=== PATIENT | male | born 1950 | race Caucasian/White ===

== ENCOUNTER 2016-12-20 09:18 | Outpatient (CLI) | payer MEDICARE, OTHER ==
[2015-03-21 08:01] VITALS: BMI 34.2
--- NOTE | ~2016-12-20 | HEMODYNAMI ---
PATIENT:SAROJ GUTIERREZ MEDICAL RECORD: [id number] : 50 LOCATION:DTRENT ADMISSION DATE: 12/20/16 Generatedon:12/24/201612:04 Patient name: SAROJ GUTIERREZ Patient #: [id number] SSN: DO B: 1950 Date of study: 12/20/2016 Page: Of Hemodynamic Procedure Report Patient Data Patient Demographics Procedure consent was obtained First Name: SAROJ Gender: Male Last Name: MATT : 1950 [facility] Initial: ODILIA Age: 66 year(s) Patient #: [id number] Race: Additional ID: [id number] Contact details Address: [address] [place] [address] State: [place] City: [place] Zip code: [address] Past Medical History Allergies: No known allergies Admission Admission Data Admission Date: 12/20/2016 Admission Time: 9:18 Height (in.): 68 BSA: 2.13 (m2) Height (cm.): 172.72 BMI: 33.45 (kg/m2) Weight (lbs.): 220 Weight (kg.): 99.79 Procedure Procedure Types Cath Procedure Diagnostic Procedure LHC [facility] w/Coronaries FFR/IVUS Intra-Coronary IVUS Initial PCI Procedure Coronary Stent Initial Miscellaneous Procedures Moderate Sedation up to 15 minutes Procedure Description Procedure Date Procedure Date: 12/20/2016 Procedure Start Time: 13:15 Procedure End Time: 13:43 Procedure Staff Name Function Adrian Deutsch RT Scrub Javi Aranda RN Nurse Shine Evans MD Performing Physician Vale Connell RT Monitor Procedure Data Cath Procedure Fluoroscopy Diagnostic fluoroscopy Total fluoroscopy Time: 5 time: 5 min min Contrast Material Contrast Material Type Amount (ml) Isovue 300 103 Entry Location Entry Primary Successful Side Size Upsize Upsize Entry Closure Succes sful Closure Location (Fr) 1 (Fr) 2 (Fr) Remarks Device Remarks Femoral Right 5 Fr 6 Fr Exoseal artery Short Estimated blood loss: 10 ml Diagnostic catheters Device Type Used For End Catheter Placement Cordis 5Fr Pigtail Procedure Catheter (MP) Cordis 5Fr JL 4.0 Procedure Catheter (MP) Cordis 5Fr 3DRC Catheter Procedure (MP) Procedure Complications No complications Procedure Medications Medication Administration Route Dosage Oxygen NC 2 l/min Heparin Flush Bag added to field 2 bags (1000units/500ml NS) 0.9% NaCl I.V. 100 ml/hr Radial Cocktail added to field 1 syringe (Verapomil 2mg/Nitro 400mcg/Heparin 1500units) Fentanyl I.V. 50 mcg Versed I.V. 1 mg Fentanyl I.V. 50 mcg Versed I.V. 1 mg Fentanyl I.V. 50 mcg Versed I.V. 1 mg Fentanyl I.V. 50 mcg Versed I.V. 1 mg Fentanyl I.V. 50 mcg Heparin Bolus I.V. 4000 units Hemodynamics Rest BSA: 2.13 (m2) O2 Consumption: Estimated: 235.11 (ml/min) O2 Consumption indexed : Estimated:110.38 (ml/min/m) Heart Rate: 54 (bpm) Pressure Samples Time Site Value (mmHg) Purpose Heart Use Rate(bpm) 13:22 LV 85/12,12 Snapshot 65 13:22 LV 193/62,51 Snapshot 75 Snapshots Pre Cath Intra NCS Post Cath Vital Signs Time Heart Resp SPO2 etCO2 [id number] NIBP (mmHg) Rhythm Pain Sedation Rate (ipm) (%) (mmHg) (mmHg) Status Level (bpm) 12:57:19 54 18 98 0 0 135/68(108) NSR 0 (11) 10(A) , No pain 13:02:18 56 20 99 0 0 131/72(109) NSR 0 (11) 10(A) , No pain 13:06:34 58 18 97 0 0 128/72(104) NSR 0 (11) 10(A) , No pain 13:10:50 71 17 95 0 0 118/67(103) NSR 0 (11) 10(A) , No pain 13:15:17 74 17 95 0 0 106/43(100) NSR 0 (11) 9(A) , No pain 13:19:26 76 16 95 0 0 116/73(86) NSR 0 (11) 9(A) , No pain 13:24:17 75 17 84 0 0 144/93(138) NSR 0 (11) 9(A) , No pain 13:35:31 70 17 88 0 0 131/71(127) NSR 0 (11) 9(A) , No pain 13:39:45 73 17 92 0 0 116/75(106) NSR 0 (11) 9(A) , No pain 13:43:45 83 5 97 0 0 126/68(93) NSR 0 (11) 10(A) , No pain Medications Time Medication Route Dose Verified Delivered Reason Note s Effectiveness by by 13:01:50 Oxygen NC 2 l/min Javi Per physician Manoj KAUFFMAN 13:02:51 Heparin Flush added 2 bags Javi Javi used for Bag to Manoj Aranda pick up driver (1000units/500ml RN NS) 13:03:00 0.9% NaCl I.V. 100 Javi Javi Per physician ml/hr Manoj Aranda RN RN 13:03:07 Radial Cocktail added 1 Javi Javi used for (Verapomil to syringe Manoj Aranda RN procedure 2mg/Nitro RN 400mcg/Hepari 13:09:21 Fentanyl I.V. 50 mcg Javi Javi for sedation Manoj Aranda RN RN 13:09:27 Versed I.V. 1 mg Javi Javi for sedation Manoj Aranda RN RN 13:12:13 Fentanyl I.V. 50 mcg Javi Javi for sedation Manoj Aranda RN RN 13:12:17 Versed I.V. 1 mg Javi Javi for sedation Manoj Aranda RN RN 13:16:34 Fentanyl I.V. 50 mcg Javi Javi for sedation Manoj Aranda RN RN 13:19:51 Versed I.V. 1 mg Javi Javi for sedation Manoj Aranda RN RN 13:20:09 Fentanyl I.V. 50 mcg Javi Javi for sedation Manoj Aranda RN RN 13:27:59 Heparin Bolus I.V. 4000 Javi Javi for units Manoj Aranda RN anticoagulation RN 13:31:04 Versed I.V. 1 mg Javi Javi for sedation Manoj Aranda RN RN 13:31:15 Fentanyl I.V. 50 mcg Javi Javi for sedation Manoj Aranda RN painter ski edge Log Time Note 12:32:39 Javi Aranda RN sent for patient. Start room use. 12:39:06 Informed consent obtained and on chart 12:39:09 Diagnostic Cath Status : Elective 12:39:51 Time tracking: Regular hours 12:39:56 Plan of Care:Hemodynamics will remain stable., Cardiac rhythm will remain stable., Comfort level will be maintained., Respiratory function will remain adequate., Patient/ family verbilizes understanding of procedure., Procedure tolerated without complication., Recovers from procedure without complications.. 12:50:22 Patient received from ED to CCL 2 Alert and oriented. Tansferred to table in Supine position. 12:50:24 Warm blankets applied, and brianna hugger turned on for patient comfort. 12:50:25 Correct patient and procedure confirmed by team. 12:50:27 ECG and BP/O2 sat monitors applied to patient. 12:56:11 Vital chart was started 12:56:12 Baseline sample Acquired. 12:56:14 Full Disclosure recording started 12:56:23 H&P Date Dictated: 12/20/2016 Emergent; H&P N/A. 12:56:25 Pre-procedure instructions explained to patient. 12:56:30 Family unavailable. 12:56:32 Patient NPO since Midnight. 12:56:36 Is the patient allergic to Iodine/contrast media? No. 12:56:39 Is patient on blood thinner?Yes 12:56:42 ACC The patient was administered the following blood thiners within the last 24 hours: ACCPlavix 12:56:44 Patient diabetic? No. 12:56:49 Snore? No 12:56:50 Sleep apnea? No 12:56:54 Dentures? No ? 12:57:11 Patient pain scale 2/10 pressure. 12:57:18 IV patent on arrival in left forearm with 0.9% NaCl at KVO. 12:57:26 Right Radial & Right Groin area was prepped with chlora-prep and draped in sterile fashion 12:57:47 Sharps counted by scrub and verified by R.N. 12:57:48 Physician paged 12:57:51 Physician arrived 13:01:50 Oxygen 2 l/min NC was administered by ; Per physician; 13:02:51 Heparin Flush Bag (1000units/500ml NS) 2 bags added to field was administered by Javi Aranda RN; used for procedure; 13:03:00 0.9% NaCl 100 ml/hr I.V. was administered by Javi Aranda RN; Per physician; 13:03:07 Radial Cocktail (Verapomil 2mg/Nitro 400mcg/Heparin 1500units) 1 syringe added to field was administered by Javi Aranda RN; used for procedure; 13:05:30 --------ALL STOP TIME OUT------ 13:05:31 Final Timeout: patient, procedure, and site verified with staff and physician. All members of the team are in agreement. 13:05:34 Right Radial & Right Groin site verified by team. 13:05:39 Physical assessment completed. ASA score P 2 - A patient with mild systemic disease as per Shine Evans MD. 13:05:43 Sedation plan: IV Moderate Sedation Versed, Fentanyl 13:06:24 Use device set Radial Dx 13:06:25 Acist Syringe opened to sterile field. 13:06:26 Terumo 6Fr Slender Glidesheath opened to sterile field. 13:06:26 Bag Decanter opened to sterile field. 13:06:26 Medline Cath Pack opened to sterile field. 13:06:27 Acist Hand Control opened to sterile field. 13:06:27 St Neri 260cm J .035 wire opened to sterile field. 13:06:28 Tegaderm 4 x 4 opened to sterile field. 13:06:28 Acist Manifold opened to sterile field. 13:06:29 MBrace Wrist Support opened to sterile field. 13:09:21 Fentanyl 50 mcg I.V. was administered by Javi Aranda RN; for sedation; 13:09:27 Versed 1 mg I.V. was administered by Javi Aranda RN; for sedation; 13:12:13 Fentanyl 50 mcg I.V. was administered by Javi Aranda RN; for sedation; 13:12:17 Versed 1 mg I.V. was administered by Javi Aranda RN; for sedation; 13:12:24 Procedure started. 13:15:41 Local anesthetic to right radial artery with Lidocaine 2% by Shine Evans MD.INITIAL ACCESS ONLY 13:16:34 Fentanyl 50 mcg I.V. was administered by Javi Aranda RN; for sedation; 13:18:18 Terumo 5Fr [place] Sheath opened to sterile field. 13:19:01 Local anesthetic to right femoral artery with Lidocaine 2% by Shine vEans MD.ADDITIONAL ACCESS 13:19:51 Versed 1 mg I.V. was administered by Javi Aranda RN; for sedation; 13:20:09 Fentanyl 50 mcg I.V. was administered by Javi Aranda RN; for sedation; 13:20:17 A 5 Fr sheath was inserted into the Right Femoral artery 13:20:59 Use device set Multipack Set 13:21:04 Diagnostic Infinity 5Fr Multipack catheter opened to sterile field. 13:21:16 A Cordis 5Fr Pigtail Catheter (MP) was advanced over the wire and used for Procedure. 13:22:29 EF : 55 % 13:22:31 Catheter removed. 13:22:38 A Cordis 5Fr JL 4.0 Catheter (MP) was advanced over the wire and used for Procedure. 13:24:33 Catheter removed. 13:24:41 A Cordis 5Fr 3DRC Catheter (MP) was advanced over the wire and used for Procedure. 13:27:07 [place] IVUS Catheter opened to sterile field. 13:27:07 Terumo 6Fr [place] Sheath opened to sterile field. 13:27:08 Stageittronic Launcher 6Fr 3DRC guide catheter opened to sterile field. 13:27:08 Mir Vracha BasixCompak Inflation Kit opened to sterile field. 13:27:20 Sheath upsized to a 6 Fr Short. 13:27:36 6 Fr 3DRC guide catheter was inserted over the wire 13:27:38 Wire advanced across lesion. 13:27:59 Heparin Bolus 4000 units I.V. was administered by Javi Aranda RN; for anticoagulation; 13:28:09 Meeks Whisper J 300cm 0.014 guide wire opened to sterile field. 13:28:18 IVUS catheter advanced over wire. 13:31:04 Versed 1 mg I.V. was administered by Javi Aranda RN; for sedation; 13:31:15 Fentanyl 50 mcg I.V. was administered by Javi Aranda RN; for sedation; 13:32:50 IVUS catheter removed over wire. 13:33:12 Stent expires 02/25/17 13:35:37 Inflation Number: 1 A Biofreedom 3.5 x 24 stent (No Cost Implant) was prepped and advanced across the Mid RCA. The stent was deployed at 13 RICKIE for 0:10 (min:sec). 13:40:07 Cordis 6Fr Exoseal opened to sterile field. 13:40:12 Guide catheter removed. 13:40:12 Wire removed. 13:40:27 Sheath removed intact; hemostasis achieved with Exoseal to the Right Femoral artery. 13:40:43 Procedure ended.(Physican Out) 13:41:45 Fluoroscopy time 05.00 minutes. 13:41:57 Contrast amount:Isovue 300 103ml. 13:42:01 Sharps counted by scrub and verified by R.N. 13:42:07 Post-op/insertion site Right Femoral artery dressed using a 4 x 4 and Tegaderm. 13:42:09 Post Procedure Pulses reassessed and unchanged 13:42:14 Post-procedure physical assessment completed. ASA score P 2 - A patient with mild systemic disease as per Shine Evans MD. 13:42:19 Post procedure rhythm: unchanged. 13:42:22 Estimated blood loss: 10 ml 13:42:23 Post procedure instruction explained to patient.Patient verbalizes understanding. 13:42:55 Procedure type changed to Cath procedure, Diagnostic procedure, LHC, LHC w/Coronaries, FFR/IVUS, Intra-Coronary IVUS Initial, PCI procedure, Coronary Stent Initial, Miscellaneous Procedures, Moderate Sedation up to 15 minutes 13:42:56 Procedure and supply charges have been captured, reviewed, submitted and are correct. 13:43:21 Procedure Complication : No complications 13:43:24 See physician's report for complete and final results. 13:43:24 Vital chart was stopped 13:43:26 Report given to Pre/Post Procedure Room. 13:43:30 Patient transfered to Pre/Post Procedure Room with Stretcher. 13:43:33 Full Disclosure recording stopped 13:43:33 Procedure ended. 13:43:37 End room use (Document Last) 13:43:49 ACC-PCI Only Patient was given prescriptions, or instructed by Shine Evans MD to start/continue the following medications upon discharge: Plavix 13:46:26 Patient Weight : 220 kg 13:46:29 Patient Height : 68 cm Intervention Summary Intervention Notes Time ActionType Lesion and Equipment Action# Pressure Duration Attributes Used 13:35:37 Place stent Mid RCA Biofreedom 1 13 00:10 3.5 x 24 stent (No Cost Implant) Device Usage Item Name Manufacture Quantity Catalog Hospital Part Current Minimal Lot# / Number Charge Number Stock Stock Serial# Code Acist Acist 1 29694 028252 093604 826095 20 Syringe Medical Systems Inc Medline Cardinal 1 [id number] 658884 58132 095126 5 Cath Pack Health Bag Microtek 1 2002S 598221 91731 160578 5 Decanter Medical Inc. Terumo 6Fr Terumo 1 [id number] 331565 687061 741832 [address] N[address] St Neri 1 941228 740159 609333 345563 30 260cm J .035 wire Acist Hand Acist 1 39825 167804 169060 124177 5 Control Medical Systems Inc Acist Acist 1 84011 016163 905575 918171 5 Manifold Medical Systems Inc Tegaderm 4 3M 1 1626W 706825 523071 976309 5 x 4 MBrace Advanced 1 140-0250-00 205996 11891 914057 5 Wrist Vascular Support Dynamics Terumo 5Fr Terumo 1 SHV274 706659 685005 876725 40 [place] Sheath Diagnostic Cardinal 1 [id number] 928045 83592 115183 30 Infinity Health 5Fr Multipack catheter Cordis 5Fr Cardinal 1 102574 5 Pigtail Health Catheter (MP) Cordis 5Fr Cardinal 1 243754 5 JL 4.0 Health Catheter (MP) Cordis 5Fr Cardinal 1 405285 5 3DRC Health Catheter (MP) Terumo 6Fr Terumo 1 BPW683 772202 698281 459097 40 [place] Sheath [place] 1 [id number] 500374 347698 634000 8 [place] Eagleye IVUS Catheter Merit Merit 1 [id number] 296206 514236 307435 15 Aquafadas Medical Inflation Kit Medtronic Medtronic 1 [id number] 940853 892740 391142 1 Launcher 6Fr 3DRC guide catheter Meeks Meeks 1 [id number] 960260 756423 913342 5 Whisper J Vascular 300cm 0.014 guide wire Biofreedom Biosensors 1 [facility]3-1104 048854 139734 5 [id number] 3.5 x 24 [place] SA stent (No Cost Implant) Cordis 6Fr Cardinal 1 EX600 906968 117047 993765 10 [facility] Health Signature Audit Herald Stage Time Signature Unsigned Intra-Procedure 12/20/2016 Vale Connell 1:47:33 PM RT(R) RT(R) 12/24/2016 12:01:20 PM Intra-Procedure 12/24/2016 Vale Connell 12:04:06 PM RT(R) Signatures Monitor : Vale Connell Signature : RT Date : Time : [id number] [place] [address]
[~2016-12-20 09:18] MED LIST: ASPIRIN EC81 M1 PO; DIOVAN160 MG PO; HYDROCHLOROTHIA50 MG PO; HYDROCODONE-APA1 TAB PO; ISOSORBIDE MONO30 M1 PO; PLAVIX75 MG PO; POTASSIUM PO; PRILOSEC10 MG PO; TENORMIN50 MG PO; VITAMIN B COMPL1 TAB PO; [UNRECOGNIZED DRUG - REMARK] PO
[2016-12-20 09:52] LABS: BASOPHILS 0.1 % (0-2); EOSINOPHILS 3.6 % (0-7); HEMATOCRIT 47.5 % (42.0-54.0); HEMOGLOBIN 16.8 g/dL (13.5-17.5); IMMATURE GRANULOCYTES 0.4 % (0-5); LYMPHOCYTES 30.9 % (15-50); MCH 32.4 pg (26.0-34.0); MCHC 35.4 g/dL (31.0-37.0); MCV 91.5 fL (80.0-100.0); MEAN PLATELET VOLUME 10.9 fL (7.4-10.4); MONOCYTES 4.9 % (2-11); NEUTROPHILS 60.1 % (40-80); PLATELET COUNT 139 10x3/uL (130-400); RBC 5.19 10x6/uL (4.20-6.10); RDW 13.2 % (11.5-14.5); WBC 7.6 10x3/uL (4.8-10.8)
[2016-12-20 10:13] LABS: ALBUMIN 4.3 g/dL (3.4-5.0); ALKALINE PHOSPHATASE 53 U/L (46-116); ALT (SGPT) 45 U/L (10-68); BILIRUBIN - TOTAL 0.47 mg/dL (0.2-1.3); CALC OSMOLALITY 280 mosm/kg (275-300); CALCIUM 9.4 mg/dL (8.5-10.1); CARBON DIOXIDE 28.9 mmol/L (21.0-32.0); CHLORIDE - SERUM 99 mmol/L (98-107); CREATININE - SERUM 1.2 mg/dL (0.6-1.3); GLUCOSE 121 mg/dL (74-106); POTASSIUM - SERUM 3.6 mmol/L (3.5-5.1); PROTEIN - SERUM 7.9 g/dL (6.4-8.2); SODIUM 137 mmol/L (136-145); UREA NITROGEN 28 mg/dL (7-18); eGFR NON AFRICAN AMERICAN 64 mL/min (90-120)
[2016-12-20 10:25] LABS: CHOL - HDL RATIO 5.1 ratio (2.3-4.9); CHOLESTEROL, TOTAL 147 mg/dL (0-200); CKMB 1.8 U/L (0.0-3.6); CREATINE KINASE 130 UL (21-232); HDL CHOLESTEROL 29 mg/dL (32-96); LDL CHOLESTEROL 80 mg/dL (0-100); LDL-HDL RATIO 2.8 ratio (1.5-3.5); PRO BNP 10 pg/mL (0-125); TRIGLYCERIDE 193 mg/dL (30-200)
[2016-12-20 10:26] LABS: TROPONIN-I < 0.017 ng/mL (0.000-0.060)
[2016-12-20] MEDS ORDERED: ALEVE220 MG PO (14:09)
--- NOTE | 2016-12-20 14:15 | NUR ---
BAND AID TO RIGHT WRIST- CDI, RIGHT GROIN CDI, NO HEMATOMA OR BLEEDING AT SITE. SANDWICH AND WATER SERVED
--- NOTE | 2016-12-20 14:45 | NUR ---
SITE-NO HEMATOMA OR BLEEDING, SOFT TO TOUCH. RESTING WITH EYES CLOSED.
--- NOTE | 2016-12-20 17:29 | NUR ---
LAB HERE FOR DRAW, EKG DONE, HEAD OF BED UP 35 DEGREES, DENIES CHEST PAIN.
--- NOTE | 2016-12-20 17:45 | NUR ---
IV D'C WITH CATH TIP INTACT, WRITTEN AND VERBAL D'C INSTRUCTIONS GIVEN TO PT AND SISTER. VERBAL UNDERSTANDING NOTED. D'C HOME WITH SISTER DRIVING.
--- NOTE | 2016-12-27 09:41 | CN ---
PATIENT NAME:SAROJ VERDUGO MEDICAL RECORD: [id number] : 50 LOCATION:D.CAT ADMIT DATE: ACCOUNT: [id number] CONSULTING PHYSICIAN: GARO TANNER MD REFERRING PHYSICIAN: GARO TANNER MD DATE OF CONSULTATION: 12/20/2016 DIAGNOSES: 1. Unstable angina. 2. Coronary artery disease. 3. Previous percutaneous transluminal coronary angioplasty stent. 4. Hypertension. 5. Chronic NSAID therapy. 6. Chronic low back and knee pain. HISTORY OF PRESENT ILLNESS: Mr. Verdugo presents with 1 week of chest discomfort in an escalating fashion. He does have a history of coronary artery disease, previous PTCA stent approximately 2 years ago. He was symptom free until this week. He has had multiple episodes of chest pain, chest discomfort compatible with angina, just like that of his previous anginal symptomatology. PHYSICAL EXAMINATION: GENERAL APPEARANCE: Well-nourished, well-developed, appears stated age. Level of distress, comfortable. PSYCHIATRIC: Mental status, alert, normal affect. Orientation, oriented to time, place and person. EYES: Lids and conjunctiva, noninjected. No discharge, no pallor. ENT: Lips, teeth, gums, normal dentition. Oropharynx, no cyanosis, no pallor. NECK: Carotid arteries, bilateral normal upstroke, no bruits, no thrills. JUGULAR VEINS: No jugular venous pressure or distention. CERVICAL LYMPH NODES: Nontender, nonenlarged. THYROID: Not enlarged. Nontender. No nodules. LUNGS: Respiratory effort, unlabored. CHEST: Normal curvature. No thoracic deformity. No chest wall tenderness. Percussion, resonant. Auscultation, clear. No wheezes, no rales, no rhonchi. CARDIOVASCULAR: Precordial exam, nondisplaced. No heaves or pericardial thrills. Rate and rhythm, regular. Heart sounds, normal S1, normal S2. No S3, no gallop, no rub. Systolic murmur, not heard. Diastolic murmur, not heard. EXTREMITIES: No cyanosis, no edema. Peripheral pulses, full and equal in all extremities, except as noted. No bruits appreciated. ABDOMEN: Soft, nondistended. Normal aorta. No bruit. Nontender. No masses. Liver, nontender, no hepatomegaly. Spleen, nontender, no splenomegaly. MUSCULOSKELETAL: No joint tenderness. No joint swelling. No erythema. NEUROLOGICAL: Normal gait, normal strength, normal tone. SKIN: Warm and dry. OVERALL IMPRESSION: Increasing angina. We will proceed with coronary angiography due to the chronic NSAID therapy. We will try to limit his dual antiplatelet therapy to 1 month. Further care depends upon findings of the angiography. TRANSINT:[id number] Voice Confirmation ID: [id number] DOCUMENT ID: [id number] CONSULT REPORT [id number] SAROJ VERDUGO, GARO GACRIA at 0941 CC: [id number] DICTATION DATE: 12/20/16 1424 AGRICULTURAL SERVICE WORKER: 12/20/16 2154 DEP CLI 12/20/16 [address] [place] [address]
--- NOTE | 2016-12-27 09:42 | OP ---
PATIENT NAME: SAROJ GUTIERREZ MEDICAL RECORD: [id number] :50 LOCATION:D.CAT ADMISSION DATE: SURGEON: GARO TANNER MD DATE OF OPERATION: 12/20/2016 PROCEDURES: 1. PTCA stent RCA. 2. Intravascular ultrasound. 3. Left heart catheterization. 4. Selective coronary angiography. 5. Left ventriculogram. PROCEDURE IN DETAIL: After informed consent was obtained and after detailed explanation of risks, benefits as well as alternative therapies, the patient elected to proceed with angiogram and angioplasty. The right femoral area was prepped and draped in normal sterile fashion. The right femoral artery was cannulated via modified Seldinger technique with placement of 6-Telugu sheath. All catheters exchanged through this sheath. FINDINGS: The left ventriculogram was performed in standard 30-degree MAO view, reveals good cardiac wall motion throughout all segments. Overall ejection fraction estimated at 60%. SELECTIVE CORONARY ANGIOGRAPHY: 1. Left main showed no significant angiographic disease. 2. Left anterior descending has moderate irregularities, but no flow-limiting stenosis. 3. The left circumflex shows moderate irregularities, but no flow-limiting stenosis. 4. The right coronary has previously placed stent. At the distal end of this, there is a 75% in-stent restenosis. This extends as well beyond the stent. This is confirmed by intravascular ultrasound. PTCA STENT OF THE RCA: The stent used was a 3.5x24 mm BioFreedom. Result was 0% residual stenosis. OVERALL IMPRESSION: Successful percutaneous transluminal coronary angioplasty stent of the right coronary artery going from 75% initial stenosis to 0% residual. TRANSINT:[id number] Voice Confirmation ID: [id number] DOCUMENT ID: [id number] GARO TANNER MD at 0942 CC: [id number] DICTATION DATE: 12/20/16 1351 INFECTIOUS DISEASE TECHNICIAN: 12/20/16 2104 [facility] CLI 12/20/16 [id number]
== END 2016-12-20 18:00 | disposition home or self-care (01) ==
LOC: D.CATH 09:18 → D.ER 09:18 → EDSTATUS 11:37 → D.CATH 18:00
PROVIDERS: Emergency Medicine
DX: I25.110 Atherosclerotic heart disease of native coronary artery with unstable angina pectoris (principal); I10 Essential (primary) hypertension; Z95.5 Presence of coronary angioplasty implant and graft; G89.29 Other chronic pain; Z01.812 Encounter for preprocedural laboratory examination; Z00.6 Encounter for examination for normal comparison and control in clinical research program
CPT/HCPCS: 93458; 92978; C9600

== ENCOUNTER → 2017-12-26 07:02 | Outpatient (CLI) | payer MEDICARE, OTHER ==
[~2017-12-26] VITALS: Ht 172.7 cm; Wt 97.7 kg
--- NOTE | ~2017-12-26 | OP ---
PATIENT NAME: SAROJ GUTIERREZ MEDICAL RECORD: [id number] :50 LOCATION:D.CAT ADMISSION DATE: SURGEON: GARO TANNER MD DATE OF OPERATION: 12/26/2017 PROCEDURES: 1. PTCA stent RCA. 2. Left heart catheterization. 3. Selective coronary angiography. 4. Left ventriculogram. INDICATION: Angina and coronary artery disease. PROCEDURE IN DETAIL: After informed consent was obtained and after a detailed description of the risks, benefits as well as alternative therapies, the patient elected to proceed with angiogram and angioplasty. The right radial area was prepped and draped in normal sterile fashion. Right radial artery was cannulated via modified Seldinger technique with placement of 6-Qatari sheath. All catheters exchanged through this sheath. FINDINGS: The left ventriculogram was performed in standard 30 degree MAO view reveals preserved cardiac wall motion, ejection fraction 50% to 55%. SELECTIVE CORONARY ANGIOGRAPHY: 1. Left main is with no significant angiographic disease. 2. Left anterior descending has moderate irregularities, but no flow-limiting stenosis. 3. The left circumflex has moderate irregularities, but no flow-limiting stenosis. 4. The right coronary artery has previously placed stents, these are widely patent; however, there is a new 80% stenosis in the mid distal vessel. PTCA STENT OF THE RCA: The stent used is a 3.0 x 15 mm Integrity. Result was 0% residual stenosis. OVERALL IMPRESSION: Successful percutaneous transluminal coronary angioplasty stent of the right coronary artery going from 80% initial stenosis to 0% residual. TRANSINT:[id number] Voice Confirmation ID: [id number] DOCUMENT ID: [id number] GARO TANNER MD at 1834 CC: [id number] DICTATION DATE: 12/26/17 0933 UPHOLSTERY AUTO TRIMMER: 12/26/17 1045 [facility] [place] [address] [id number]
--- NOTE | ~2017-12-26 | HEMODYNAMI ---
PATIENT:SAROJ GUTIERREZ MEDICAL RECORD: [id number] : 50 LOCATION:D.CAT ADMISSION DATE: 12/26/17 Generatedon:12/26/20179:35 Patient name: SAROJ GUTIERREZ Patient #: [id number] SSN: DO B: 1950 Date of study: 12/26/2017 Page: Of Hemodynamic Procedure Report Patient Data Patient Demographics Procedure consent was obtained First Name: SAROJ Gender: Male Last Name: MATT : 1950 [facility] Initial: ODILIA Age: 67 year(s) Patient #: [id number] Race: Additional ID: [id number] Contact details Address: [address] [place] [address] State: [place] City: [place] Zip code: [address] Past Medical History Allergies: No known allergies Admission Admission Data Admission Date: 12/26/2017 Admission Time: 7:02 Admit Source: Other Lab Results Lab Result Date: 12/26/2017 Lab Result Time: 0:00 Biochemistry Name Units Result Min Max BUN mg/dl 22 --(----)-* 7 18 Creatinine mg/dl 1 --(--*-)-- 0.6 1.3 CBC Name Units Result Min Max Hemoglobin g/dl 16.1 --(--*-)-- 13.5 17.5 Procedure Procedure Types Cath Procedure Diagnostic Procedure [facility] w/Coronaries PCI Procedure Coronary Stent Coronary Stent Initial Procedure Description Procedure Date Procedure Date: 12/26/2017 Procedure Start Time: 9:19 Procedure End Time: 9:32 Procedure Staff Name Function Shine Evans MD Performing Physician Kevan Goodman RT Monitor Javi Aranda RN Nurse Kalani Koch RN Nurse Manoj Parker RT Nutrition Coordinator Theodora Caballero RT Scrub Procedure Data Cath Procedure Fluoroscopy Diagnostic fluoroscopy Total fluoroscopy Time: 2 time: 2 min min Diagnostic fluoroscopy Total fluoroscopy dose: dose: 437.33 mGy 437.33 mGy Contrast Material Contrast Material Type Amount (ml) Isovue 300 79 Entry Location Entry Primary Successful Side Size Upsize Upsize Entry Closure Barber ccessful Closure Location (Fr) 1 (Fr) 2 (Fr) Remarks Device Remarks Radial Right 6 Fr Mechanical artery Short Compression Diagnostic catheters Device Type Used For End Catheter Placement DIAGNOSTIC Bonnyman 110cm 5 LV Angiography Fr catheter ([id number]) Procedure Complications No complications Procedure Medications Medication Administration Route Dosage Oxygen etCO2 Nasal cannula 2 l/min Heparin Flush Bag added to field 2 bags (1000units/500ml NS) 0.9% NaCl I.V. 100 ml/hr Radial Cocktail added to field 1 syringe (Verapomil 2mg/Nitro 400mcg/Heparin 1500units) Fentanyl I.V. 50 mcg Versed I.V. 1 mg Fentanyl I.V. 50 mcg Versed I.V. 1 mg Radial Cocktail I.A. 1 syringe (Verapomil 2mg/Nitro 400mcg/Heparin 1500units) Fentanyl I.V. 50 mcg Heparin Bolus I.V. 4000 units Hemodynamics Rest HGB: 16.1 (g/dl) Heart Rate: 52 (bpm) Snapshots Pre Cath Intra NCS Post Cath Vital Signs Time Heart Resp SPO2 etCO2 NIBP (mmHg) Rhythm Pain Sedation Rate (ipm) (%) (mmHg) Status Level (bpm) 8:59:38 60 16 95 129/73(94) NSR 0 (11) 10(A) , No pain 9:03:54 61 17 94 0 131/75(86) NSR 0 (11) 10(A) , No pain 9:08:14 60 16 95 32.4 129/72(99) NSR 0 (11) 10(A) , No pain 9:12:32 61 16 97 33.8 134/75(108) NSR 0 (11) 10(A) , No pain 9:16:50 73 16 92 31.6 114/70(95) NSR 0 (11) 10(A) , No pain 9:21:02 55 17 91 32.3 128/74(96) NSR 0 (11) 10(A) , No pain 9:25:25 79 17 90 33.9 93/62(87) NSR 0 (11) 10(A) , No pain 9:30:20 80 16 90 0 111/63(104) NSR 0 (11) 10(A) , No pain 9:31:31 81 16 89 0 112/68(95) NSR 0 (11) 10(A) , No pain Medications Time Medication Route Dose Verified Delivered Reason Note s Effectiveness by by 9:11:36 Oxygen etCO2 2 l/min Shine Caldwell Per physician Nasal Nathan Aranda RN cannula 9:11:44 Heparin Flush added 2 bags Shine Caldewll used for Bag to Nathan Aranda RN procedure (1000units/500ml field NS) 9:11:53 0.9% NaCl I.V. 100 Shine Caldwell Per physician ml/hr Nathan Aranda RN 9:12:00 Radial Cocktail added 1 Shine Caldwell used for (Verapomil to syringe Nathan Aranda RN procedure 2mg/Nitro field 400mcg/Heparin 1500units) 9:16:36 Fentanyl I.V. 50 mcg Shine Caldwell for sedation Nathan Aranda RN 9:16:44 Versed I.V. 1 mg Shine Caldwell for sedation Nathan Aranda RN 9:19:43 Fentanyl I.V. 50 mcg Shine Caldwell for sedation Nathan Aranda RN 9:19:47 Versed I.V. 1 mg Shine Caldwell for sedation Nathan Aranda RN 9:21:49 Radial Cocktail I.A. 1 Shine Riojas for (Verapomil syringe Nathan Evans MD vasodilation 2mg/Nitro 400mcg/Heparin 1500units) 9:22:20 Fentanyl I.V. 50 mcg Shine Caldwell for sedation Nathan Aranda RN 9:26:32 Heparin Bolus I.V. 4000 Shine Caldwell for units Nathan Aranda RN anticoagulation Procedure Log Time Note 8:35:49 Manoj Parker RT(R) sent for patient. Start room use. 8:50:06 Admit Source: Other 8:50:47 Diagnostic Cath status Elective 8:50:51 Time tracking: Regular hours (M-F 7:00 - 5:00) 8:50:55 Plan of Care:Hemodynamics will remain stable., Cardiac rhythm will remain stable., Comfort level will be maintained., Respiratory function will remain adequate., Patient/ family verbilizes understanding of procedure., Procedure tolerated without complication., Recovers from procedure without complications.. 8:51:01 Patient received from Pre/Post Procedure Room to CCL 3 Alert and oriented. Tansferred to table in Supine position. 8:51:02 Warm blankets applied, and brianna hugger turned on for patient comfort. 8:51:02 Correct patient and procedure confirmed by team. 8:51:04 Signed procedure consent form obtained from patient. 8:51:05 ECG and BP/O2 sat monitors applied to patient. 8:54:14 Full Disclosure recording started 8:58:27 Vital chart was started 8:58:28 Baseline sample Acquired. 8:58:31 Rhythm: sinus rhythm 8:59:07 H&P Date Dictated: 12/22/2017 Within 30 days and on chart.. 8:59:09 Pre-procedure instructions explained to patient. 8:59:09 Pre-op teaching completed and patient verbalized understanding. 8:59:12 Family in waiting room. 8:59:14 Patient NPO since Midnight. 8:59:21 Patient allergic to No known allergies 8:59:23 Is the patient allergic to Iodine/contrast media? No. 8:59:29 Is patient on blood thinner?Yes 8:59:32 ACC The patient was administered the following blood thiners within the last 24 hours: ACCPlavix 8:59:33 Patient diabetic? No. 8:59:35 If diabetic: On Metformin? No 8:59:36 ----Pre-sedation anethsthesia assessment.---- 8:59:38 Previous problem with sedation/anesthesia? No ? 8:59:39 Snore? Yes 8:59:40 Sleep apnea? No 8:59:42 Deviated septum? No 8:59:43 Opens mouth fully? Yes 8:59:44 Sticks out tongue? Yes 8:59:46 Airway obstruction? No ? 8:59:50 Dentures? Yes in tight 8:59:54 Pre procedure: right dorsailis pedis pulse 1+ Palpable, but thready & weak; easily obliterated 8:59:57 Modified Heriberto's test Ulnar < 7 seconds 9:00:01 Patient pain scale 0/10 ?. 9:02:46 IV patent on arrival in Left upper arm with 0.9% NaCl at 10ml/hr. 9:05:14 Lab Result : Creatinine 1 mg/dl 9:05:14 Lab Result : BUN 22 mg/dl 9:05:14 Lab Result : Hemoglobin 16.1 g/dl 9:05:32 Lab results completed and on chart. 9:05:35 Right Radial & Right Groin area was prepped with chlora-prep and draped in sterile fashion 9:05:36 Alarms reviewed by RYahaira N. 9:05:36 Sharps counted by scrub and verified by R.N. 9:05:37 Physician arrived 9:05:38 --------ALL STOP TIME OUT------ 9:05:39 Final Timeout: patient, procedure, and site verified with staff and physician. All members of the team are in agreement. 9:05:41 Right groin site verified by team. 9:05:44 Physical assessment completed. ASA score P 2 - A patient with mild systemic disease as per Shine Evans MD. 9:05:48 Sedation plan: IV Moderate Sedation Medication:Versed, Fentanyl 9:06:47 Use device set Radial Dx or PCI 9:06:48 ACIST Syringe (52382) opened to sterile field. 9:06:49 Medline Cath Pack ([id number]) opened to sterile field. 9:06:49 Bag Decanter (2002S) opened to sterile field. 9:06:50 DIAGNOSTIC WIRE .035 260cm J wire (587696) opened to sterile field. 9:06:51 ACIST Hand Control (35682) opened to sterile field. 9:06:51 ACIST Manifold (15899) opened to sterile field. 9:06:52 Tegaderm 4 x 4 (1626W) opened to sterile field. 9:06:52 MBrace Wrist Support ([id number]) opened to sterile field. 9:06:57 SHEATH 6Fr Prelude Radial ([id number]) opened to sterile field. 9:11:36 Oxygen 2 l/min etCO2 Nasal cannula was administered by Javi Aranda RN; Per physician; 9:11:44 Heparin Flush Bag (1000units/500ml NS) 2 bags added to field was administered by Javi Aranda RN; used for procedure; 9:11:53 0.9% NaCl 100 ml/hr I.V. was administered by Javi Aranda RN; Per physician; 9:12:00 Radial Cocktail (Verapomil 2mg/Nitro 400mcg/Heparin 1500units) 1 syringe added to field was administered by Javi Aranda RN; used for procedure; 9:13:59 Zero performed for pressure channel P1 9:14:19 Baseline sample Acquired. 9:16:36 Fentanyl 50 mcg I.V. was administered by Javi Aranda RN; for sedation; 9:16:44 Versed 1 mg I.V. was administered by Javi Aranda RN; for sedation; 9:19:40 Procedure started. 9:19:43 Fentanyl 50 mcg I.V. was administered by Javi Aranda RN; for sedation; 9:19:47 Versed 1 mg I.V. was administered by Javi Aranda RN; for sedation; 9::52 Local anesthetic to right radial artery with Lidocaine 2% by Shine Evans MD.INITIAL ACCESS ONLY 9:20:01 A 6 Fr Short sheath was inserted into the Right Radial artery 9:21:49 Radial Cocktail (Verapomil 2mg/Nitro 400mcg/Heparin 1500units) 1 syringe I.A. was administered by Shine Evans MD; for vasodilation; 9:22:20 Fentanyl 50 mcg I.V. was administered by Javi Arnada RN; for sedation; 9:22:32 A DIAGNOSTIC Bonnyman 110cm 5 Fr catheter ([id number]) was advanced over the wire and used for LV Angiography. 9:22:40 LV angiography performed. 9:22:42 LV gram done using MAO 9:22:59 EF : 55 % 9:23:03 RCA angiography performed. 9:23:37 LCA angiography performed. 9:25:22 CHOICE PT Extra Support 182cm wire ([id number]) opened to sterile field. 9:25:24 GUIDE 6FR AR 2.0 catheter ([id number]) opened to sterile field. 9:25:24 INFLATOR Merit BasixCompak (GF1799) opened to sterile field. 9:25:52 Catheter removed. 9:25:57 ACC Pre-intervention MEDHAT Flow is 3. 9:26:04 6 Fr AR 2 guide catheter was inserted over the wire 9:26:10 CPTES wire advanced. 9:26:32 Heparin Bolus 4000 units I.V. was administered by Javi Aranda RN; for anticoagulation; 9:27:29 Place stent Inflation Number: 1 A INTEGRITY RX 3.0 x 15 stent ([id number]) was prepped and advanced across the Mid RCA. The stent was deployed at 15 RICKIE for 0:10 (min:sec). 9:27:50 Inflation number: 2 The stent balloon was then re-inflated across the Mid RCA to 17 RICKIE for 0:13 (min:sec). 9:27:57 Stent catheter was removed intact over wire. 9:29:09 Procedure type changed to Cath procedure, Diagnostic procedure, LHC, LHC w/Coronaries, PCI procedure, Coronary Stent, Coronary Stent Initial 9:30:17 Wire removed. 9:30:20 Guide catheter removed. 9:30:28 Sheath removed intact; hemostasis achieved with Mechanical Compression to the Right Radial artery. 9:30:30 Procedure ended.(Physican Out) 9:30:39 Fluoroscopy time 02.00 minutes. 9:30:48 Flurop Dose total: 437.33 9:30:48 Fluoroscopy dose: 437.33 mGy 9:31:21 Contrast amount:Isovue 300 79ml. 9:31:24 TR BAND Large ([id number]) opened to sterile field. 9:31:27 Sharps counted by scrub and verified by R.N. 9:31:31 TR band inflated with 10cc of air. 9:31:32 Insertion/operative site no bleeding no hematoma. 9:31:36 Post right radial artery:stable 9:31:37 Post Procedure Pulses reassessed and unchanged 9:31:45 Post procedure rhythm: sinus rhythm 9:31:47 Post procedure instruction explained to patient.Patient verbalizes understanding. 9:31:49 Procedure and supply charges have been captured, reviewed, submitted and are correct. 9:32:25 Procedure Complication : No complications 9:32:27 Vital chart was stopped 9:32:28 See physician's report for complete and final results. 9:32:31 Report given to Pre/Post Procedure Room. 9:32:35 Patient transfered to Pre/Post Procedure Room with Stretcher. 9:32:37 Procedure ended. 9:32:37 Full Disclosure recording stopped 9:32:41 End room use (Document Last) Intervention Summary Intervention Notes Time ActionType Lesion and Equipment Action# Pressure Duration Attributes Used 9::29 Place stent Mid RCA INTEGRITY RX 1 15 00:10 3.0 x 15 stent ([id number]) 9:27:50 Reinflate Mid RCA INTEGRITY RX 2 17 00:13 stent 3.0 x 15 balloon stent ([id number]) Device Usage Item Name Manufacture Quantity Catalog Number Hospital Part Current M inimal Lot# / Charge Number Stock Stock Serial# Code ACIST Syringe Acist 1 77303 057484 081892 436362 2 0 (98093) Medical Systems Inc Medline Cath Cardinal 1 [id number] 546631 60490 663199 5 Pack Health ([id number]) Bag Decanter Microtek 1 309589 62681 796679 5 () Medical Inc. DIAGNOSTIC WIRE St Neri 1 866104 399154 032476 997574 3 0 .035 260cm J wire (312434) ACIST Hand Acist 1 13609 815853 794309 578224 5 Control (77706) Medical Systems Squrl ACIST Manifold Acist 1 93024 301646 557103 528830 5 (20907) Medical Systems Inc Tegaderm 4 x 4 3M 1 1626W 473548 057496 117641 5 (1626W) MBrace Wrist Advanced 1 140-0250-00 288115 95833 744951 5 Support Vascular ([id number]) Dynamics SHEATH 6Fr Merit 1 [id number] 298369 697998 890983 5 Prelude Radial Medical ([id number]) DIAGNOSTIC Terumo 1 55-0991 330095 689941 026407 5 Bonnyman 110cm 5 Fr catheter (134238) CHOICE PT Extra [place] 1 [id number] 334262 947007 002517 5 Support 182cm Scientific wire ([id number]) GUIDE 6FR AR Medtronic 1 [id number] 682870 15912 628935 1 2.0 catheter ([id number]) INFLATOR Merit Merit 1 BR9825 094726 033431 076112 1 5 Bracketr (PP3008) INTEGRITY RX Medtronic 1 [id number] 184180 173453 600069 5 [id number] 3.0 x 15 stent ([id number]) TR BAND Large Terumo 1 [id number] 255198 004365 541441 4 0 ([id number]) Signature Audit Sweeny Stage Time Signature Unsigned Intra-Procedure 12/26/2017 Kevan Goodman RT(R) 9:35:27 AM Signatures Monitor : Kevan Goodman RT Signature : Date : Time : [address] [place] [address]
[~2017-12-26 07:02] MED LIST changes: +ALEVE220 MG PO
[2017-12-26 08:12] VITALS: BP 128/69; Ht 172.7 cm; Wt 97.7 kg
[2017-12-26 08:40] LABS: BASOPHILS 0.2 % (0-2); EOSINOPHILS 4.6 % (0-7); HEMATOCRIT 45.5 % (42.0-54.0); HEMOGLOBIN 16.1 g/dL (13.5-17.5); IMMATURE GRANULOCYTES 0.2 % (0-5); LYMPHOCYTES 26.8 % (15-50); MCH 32.9 pg (26.0-34.0); MCHC 35.4 g/dL (31.0-37.0); MCV 92.9 fL (80.0-100.0); MEAN PLATELET VOLUME 10.9 fL (7.4-10.4); NEUTROPHILS 62.2 % (40-80); PLATELET COUNT 141 10x3/uL (130-400); RDW 13.9 % (11.5-14.5); WBC 8.4 10x3/uL (4.8-10.8)
[2017-12-26 08:41] LABS: CALC OSMOLALITY 284 mosm/kg (275-300); CALCIUM 9.2 mg/dL (8.5-10.1); CARBON DIOXIDE 27.3 mmol/L (21.0-32.0); CHLORIDE - SERUM 106 mmol/L (98-107); GLUCOSE 108 mg/dL (74-106); POTASSIUM - SERUM 3.9 mmol/L (3.5-5.1); SODIUM 141 mmol/L (136-145); UREA NITROGEN 22 mg/dL (7-18); eGFR NON AFRICAN AMERICAN 79 mL/min (90-120)
== END | disposition home or self-care (01) ==
LOC: D.CATH 07:02
PROVIDERS: Internal Medicine Interventional Cardiology
DX: I25.110 Atherosclerotic heart disease of native coronary artery with unstable angina pectoris (principal)

== ENCOUNTER 2018-02-27 11:05 | Outpatient (CLI) | payer MEDICARE, OTHER ==
[~2018-02-27] VITALS: Ht 172.7 cm; Wt 100.0 kg
--- NOTE | ~2018-02-27 | HEMODYNAMI ---
PATIENT:SAROJ GUTIERREZ MEDICAL RECORD: [id number] : 50 LOCATION:DTRENT ADMISSION DATE: 02/27/18 Generatedon:02/27/201814:46 Patient name: SAROJ GUTIERREZ Patient #: [id number] SSN: DO B: 1950 Date of study: 02/27/2018 Page: Of Hemodynamic Procedure Report Patient Data Patient Demographics Procedure consent was obtained First Name: SAROJ Gender: Male Last Name: MATT : 1950 [facility] Initial: ODILIA Age: 67 year(s) Patient #: [id number] Race: Additional ID: [id number] Contact details Address: [address] [place] [address] State: [place] City: [place] Zip code: [address] Past Medical History Allergies: No known allergies Admission Admission Data Admission Date: 02/27/2018 Admission Time: 11:05 Lab Results Lab Result Date: 02/27/2018 Lab Result Time: 0:00 Biochemistry Name Units Result Min Max BUN mg/dl 22 --(----)-* 7 18 Creatinine mg/dl 1 --(--*-)-- 0.6 1.3 CBC Name Units Result Min Max Hemoglobin g/dl 15.6 --(--*-)-- 13.5 17.5 Procedure Procedure Types Cath Procedure Diagnostic Procedure [facility] w/Coronaries FFR/IVUS Intra-Coronary IVUS Initial Sedation Charges Moderate Sedation up to 15 minutes PCI Procedure Coronary Stent Coronary Stent Initial Procedure Description Procedure Date Procedure Date: 02/27/2018 Procedure Start Time: 14:20 Procedure End Time: 14:41 Procedure Staff Name Function Shine Evans MD Performing Physician Ruthann Xie RT Monitor Javi Aranda RN Nurse Theodora Caballero RT Scrub Procedure Data Cath Procedure Fluoroscopy Diagnostic fluoroscopy Total fluoroscopy Time: 4.7 time: 4.7 min min Diagnostic fluoroscopy Total fluoroscopy dose: 392 dose: 392 mGy mGy Contrast Material Contrast Material Type Amount (ml) Isovue 300 100 Entry Location Entry Primary Successful Side Size Upsize Upsize Entry Closure Barber ccessful Closure Location (Fr) 1 (Fr) 2 (Fr) Remarks Device Remarks Radial Right 6 Fr Mechanical artery Short Compression Estimated blood loss: 5 ml Diagnostic catheters Device Type Used For End Catheter Placement DIAGNOSTIC [place] 110cm 5 Multi-vessel Fr catheter ([id number]) Angiography Procedure Complications No complications Procedure Medications Medication Administration Route Dosage Oxygen etCO2 Nasal cannula 2 l/min Heparin Flush Bag added to field 2 bags (1000units/500ml NS) 0.9% NaCl I.V. 100 ml/hr Radial Cocktail added to field 1 syringe (Verapomil 2mg/Nitro 400mcg/Heparin 1500units) Fentanyl I.V. 50 mcg Versed I.V. 1 mg Fentanyl I.V. 50 mcg Versed I.V. 1 mg Fentanyl I.V. 50 mcg Versed I.V. 1 mg Radial Cocktail I.A. 1 syringe (Verapomil 2mg/Nitro 400mcg/Heparin 1500units) Heparin Bolus I.V. 4000 units Fentanyl I.V. 50 mcg Hemodynamics Rest HGB: 15.6 (g/dl) Heart Rate: 55 (bpm) Pressure Samples Time Site Value (mmHg) Purpose Heart Use Rate(bpm) 14:26 LV 129/36,38 Snapshot 90 Snapshots Pre Cath Intra NCS Post Cath Vital Signs Time Heart Resp SPO2 etCO2 NIBP (mmHg) Rhythm Pain Sedation Rate (ipm) (%) (mmHg) Status Level (bpm) 14:07:06 53 17 97 0 157/74(112) NSR 0 (11) 10(A) , No pain 14:11:39 59 17 100 36.2 150/69(114) NSR 0 (11) 10(A) , No pain 14:15:57 71 17 98 33.2 134/74(90) NSR 0 (11) 10(A) , No pain 14:20:19 72 16 96 33.1 105/70(83) NSR 0 (11) 10(A) , No pain 14:25:22 57 16 98 36.2 130/77(114) NSR 0 (11) 10(A) , No pain 14:30:48 81 16 96 39.9 117/64(91) NSR 0 (11) 10(A) , No pain 14:38:28 80 16 6 0 119/71(110) NSR 0 (11) 10(A) , No pain 14:40:44 93 17 96 0 110/73(91) NSR 0 (11) 10(A) , No pain Medications Time Medication Route Dose Verified Delivered Reason Not es Effectiveness by by 14:03:52 Oxygen etCO2 2 l/min Shine Caldwell Per physician Nasal Nathan Aranda RN cannula 14:04:22 Heparin Flush added 2 bags Shine Caldwell used for Bag to Nathan Aranda RN procedure (1000units/500ml field NS) 14:04:37 0.9% NaCl I.V. 100 Shine Caldwell Per physician ml/hr Nathan Aranda RN 14:04:48 Radial Cocktail added 1 Shine Caldwell used for (Verapomil to syringe Nathan Aranda RN procedure 2mg/Nitro field 400mcg/Heparin 1500units) 14:19:17 Fentanyl I.V. 50 mcg Shine Caldwell for sedation Nathan Aranda RN 14:19:26 Versed I.V. 1 mg Shine Caldwell Per physician Nathan Aranda RN 14:21:15 Fentanyl I.V. 50 mcg Shine Caldwell for sedation Nathan Aranda RN 14:21:20 Versed I.V. 1 mg Shine Caldwell Per physician Nathan Aranda RN 14:24:14 Fentanyl I.V. 50 mcg Shine Shethy for sedation Nathan Aranda RN 14:24:19 Versed I.V. 1 mg Shine Caldwell Per physician Nathan Aranda RN 14:25:59 Radial Cocktail I.A. 1 Shine Riojas for (Verapomil syringe Nathan Evans MD vasodilation 2mg/Nitro 400mcg/Heparin 1500units) 14:31:31 Heparin Bolus I.V. 4000 Shine Caldwell for units Nathan Aranda RN anticoagulation 14:33:00 Fentanyl I.V. 50 mcg Shine Caldwell for sedation Nathan Aranda RN Procedure Log Time Note 13:46:30 Javi Aranda RN sent for patient. Start room use. 13:46:31 Time tracking: Regular hours (M-F 7:00 - 5:00) 13:46:35 Plan of Care:Hemodynamics will remain stable., Cardiac rhythm will remain stable., Comfort level will be maintained., Respiratory function will remain adequate., Patient/ family verbilizes understanding of procedure., Procedure tolerated without complication., Recovers from procedure without complications.. 13:59:47 Patient received from ED to CCL 3 Alert and oriented. Tansferred to table in Supine position. 13:59:48 Warm blankets applied, and brianna hugger turned on for patient comfort. 13:59:49 Correct patient and procedure confirmed by team. 13:59:50 Signed procedure consent form obtained from patient. 13:59:51 ECG and BP/O2 sat monitors applied to patient. 14:03:52 Oxygen 2 l/min etCO2 Nasal cannula was administered by Javi Aranda RN; Per physician; 14:04:22 Heparin Flush Bag (1000units/500ml NS) 2 bags added to field was administered by Javi Aranda RN; used for procedure; 14:04:22 H&P Date Dictated: 02/27/2018 ER History on chart.. 14:04:23 Pre-procedure instructions explained to patient. 14:04:23 Pre-op teaching completed and patient verbalized understanding. 14:04:25 Family in waiting room. 14:04:27 Patient NPO since Breakfast. 14:04:37 0.9% NaCl 100 ml/hr I.V. was administered by Javi Aranda RN; Per physician; 14:04:39 Is the patient allergic to Iodine/contrast media? No. 14:04:41 Is patient on blood thinner?Yes 14:04:43 ACC The patient was administered the following blood thiners within the last 24 hours: ACCPlavix 14:04:45 Patient diabetic? No. 14:04:48 Radial Cocktail (Verapomil 2mg/Nitro 400mcg/Heparin 1500units) 1 syringe added to field was administered by Javi Aranda RN; used for procedure; 14:04:48 Previous problem with sedation/anesthesia? No ? 14:04:49 Snore? Yes 14:04:50 Sleep apnea? No 14:04:51 Deviated septum? No 14:04:52 Opens mouth fully? Yes 14:04:52 Sticks out tongue? Yes 14:04:59 Airway obstruction? Yes EMPHYSEMA 14:05:04 Dentures? No ? 14:05:10 Modified Heriberto's test Ulnar < 7 seconds 14:05:21 IV patent on arrival in left hand with 0.9% NaCl at O. 14:05:46 Vital chart was started 14:07:29 Lab Result : Creatinine 1 mg/dl 14:07:29 Lab Result : BUN 22 mg/dl 14:07:29 Lab Result : Hemoglobin 15.6 g/dl 14:07:32 Lab results completed and on chart. 14:07:34 Right Radial & Right Groin area was prepped with chlora-prep and draped in sterile fashion 14:07:36 Alarms reviewed by R. N. 14:07:36 Sharps counted by scrub and verified by R.N. 14:07:42 Baseline sample Acquired. 14:07:47 Rhythm: sinus bradycardia 14:07:48 Full Disclosure recording started 14:15:46 Physician arrived 14:15:46 --------ALL STOP TIME OUT------ 14:15:46 Final Timeout: patient, procedure, and site verified with staff and physician. All members of the team are in agreement. 14:15:49 Right Radial & Right Groin site verified by team. 14:15:52 Physical assessment completed. ASA score P 2 - A patient with mild systemic disease as per Shine Evans MD. 14:15:56 Sedation plan: IV Moderate Sedation Medication:Versed, Fentanyl 14:16:55 Use device set Radial Dx or PCI 14:16:56 ACIST Syringe (12364) opened to sterile field. 14:16:56 Medline Cath Pack ([id number]) opened to sterile field. 14:16:57 Bag Decanter () opened to sterile field. 14:16:57 DIAGNOSTIC WIRE .035 260cm J wire (629718) opened to sterile field. 14:16:58 ACIST Hand Control (10389) opened to sterile field. 14:16:58 ACIST Manifold (30429) opened to sterile field. 14:16:59 Tegaderm 4 x 4 (1626W) opened to sterile field. 14:16:59 MBrace Wrist Support ([id number]) opened to sterile field. 14:17:01 SHEATH 6Fr Prelude Radial ([id number]) opened to sterile field. 14:19:17 Fentanyl 50 mcg I.V. was administered by Javi Aranda RN; for sedation; 14:19:26 Versed 1 mg I.V. was administered by Javi Aranda RN; Per physician; 14:20:33 Procedure started. 14:20:40 Local anesthetic to right radial artery with Lidocaine 2% by Shine Evans MD.INITIAL ACCESS ONLY 14:21:15 Fentanyl 50 mcg I.V. was administered by Javi Aranda RN; for sedation; 14::17 Zero performed for pressure channel P1 14::20 Versed 1 mg I.V. was administered by Javi Aranda RN; Per physician; 14:24:14 Fentanyl 50 mcg I.V. was administered by Javi Aranda RN; for sedation; 14:24:19 Versed 1 mg I.V. was administered by Javi Aranda RN; Per physician; 14:25:31 A 6 Fr Short sheath was inserted into the Right Radial artery 14:25:51 A DIAGNOSTIC [place] 110cm 5 Fr catheter ([id number]) was advanced over the wire and used for Multi-vessel Angiography. 14:25:59 Radial Cocktail (Verapomil 2mg/Nitro 400mcg/Heparin 1500units) 1 syringe I.A. was administered by Shine Evans MD; for vasodilation; 14:26:56 LV hemodynamics recorded. 14:26:58 LV gram done using MAO 14:27:07 Injector settings: Ml/sec: 5, Volume: 15, 14:27:12 EF : 60 % 14:29:21 LCA angiography performed. 14:29:23 Injector settings: Ml/sec: 3, Volume: 6, 14:30:17 RCA angiography performed. 14:30:19 Injector settings: Ml/sec: 3, Volume: 6, 14:30:44 GUIDE 6FR XBLAD 3.5 catheter ([id number]) opened to sterile field. 14:30:45 [place] IVUS Catheter (83132T) opened to sterile field. 14:30:46 CHOICE PT Extra Support 182cm wire ([id number]) opened to sterile field. 14:30:47 INFLATOR Merit BasixCompak (PK9973) opened to sterile field. 14:31:00 Catheter removed. 14:31:00 Proceeding to intervention. 14:31:13 6 Fr xblad 3.5 guide catheter was inserted over the wire 14:31:17 choice pt wire advanced. 14::31 Heparin Bolus 4000 units I.V. was administered by Javi Aranda RN; for anticoagulation; 14::37 IVUS catheter advanced over wire. 14::41 IVUS pass to LAD lesion performed. 14:33:00 Fentanyl 50 mcg I.V. was administered by Javi Aranda RN; for sedation; 14:34:34 IVUS catheter removed over wire. 14:35:38 Place stent Inflation Number: 1 A SILVER RX 2.25 x 22 stent ([id number]) was prepped and advanced across the Mid LAD. The stent was deployed at 11 RICKIE for 0:10 (min:sec). 14:37:33 Stent catheter was removed intact over wire. 14:37:49 Place stent Inflation Number: 2 A SILVER RX 2.75 x 15 stent ([id number]) was prepped and advanced across the Mid LAD. The stent was deployed at 15 RICKIE for 0:10 (min:sec). 14:37:56 Stent catheter was removed intact over wire. 14:37:57 Wire removed. 14:37:57 Guide catheter removed. 14:38:01 TR BAND Standard ([id number]) opened to sterile field. 14:38:09 Sheath removed intact; hemostasis achieved with Mechanical Compression to the Right Radial artery. 14:39:14 Procedure ended.(Physican Out) 14:39:33 Fluoroscopy time 04.70 minutes. 14:40:02 Flurop Dose total: 392 14:40:02 Fluoroscopy dose: 392 mGy 14:40:07 Contrast amount:Isovue 300 100ml. 14:40:09 Sharps counted by scrub and verified by R.N. 14:40:11 TR band inflated with 11cc of air. 14:40:16 Post right radial artery:stable 14:40:18 Post Procedure Pulses reassessed and unchanged 14::31 Post procedure rhythm: unchanged. 14:40:34 Estimated blood loss: 5 ml 14:40:35 Post procedure instruction explained to patient.Patient verbalizes understanding. 14:40:36 Patient needs reinforcement of post procedure teaching. 14:40:55 Procedure type changed to Cath procedure, Diagnostic procedure, LHC, LHC w/Coronaries, FFR/IVUS, Intra-Coronary IVUS Initial, Sedation Charges, Moderate Sedation up to 15 minutes, PCI procedure, Coronary Stent, Coronary Stent Initial 14:41:04 Procedure and supply charges have been captured, reviewed, submitted and are correct. 14:41:09 Procedure Complication : No complications 14:41:11 Vital chart was stopped 14:41:11 See physician's report for complete and final results. 14:41:38 Report given to Pre/Post Procedure Room. 14:41:43 Patient transfered to Pre/Post Procedure Room with Stretcher. 14:41:45 Procedure ended. 14:41:45 Full Disclosure recording stopped 14:41:51 ACC-PCI Only Patient was given prescriptions, or instructed by Shine Evans MD to start/continue the following medications upon discharge: Plavix 14:41:52 End room use (Document Last) Intervention Summary Intervention Notes Time ActionType Lesion and Equipment Used Action# Pressure Duration Attributes 14:35:38 Place stent Mid LAD SILVER RX 2.25 x 1 11 00:10 22 stent ([id number]) 14:37:49 Place stent Mid LAD SILVER RX 2.75 x 2 15 00:10 15 stent ([id number]) Device Usage Item Name Manufacture Quantity Catalog Number Hospital Part Current Minimal Lot# / Charge Number Stock Stock Serial# Code ACIST Syringe Acist 1 80389 334463 514403 [id number] 20 (84486) Medical Systems Inc Medline Cath Medline 1 [id number] 034805 17126 256646 5 Pack ([id number]) Bag Decanter Microtek 1 2001S 024236 42023 828935 5 () Medical Inc. DIAGNOSTIC WIRE St Neri 1 961696 056661 260523 522422 30 .035 260cm J wire (256057) ACIST Hand Acist 1 42962 731076 106310 557448 5 Control (88903) Medical Systems Inc ACIST Manifold Acist 1 02491 908580 948217 417545 5 (29660) Medical Systems Inc Tegaderm 4 x 4 3M 1 1626W 261035 726234 731759 5 (1626W) MBrace Wrist Advanced 1 140-0250-00 580988 78634 825265 5 Support Vascular ([id number]) Dynamics SHEATH 6Fr Merit 1 [id number] 515979 268935 611977 5 Prelude Radial Medical ([id number]) DIAGNOSTIC Terumo 1 40-2430 569914 492743 897429 5 [place] 110cm 5 Fr catheter (240880) GUIDE 6FR XBLAD Cardinal 1 [id number] 598683 037224 159378 10 3.5 catheter Health (16756617) [place] 1 08082X 245312 428096 381183 8 [place] IVUS Catheter (81575Y) CHOICE PT Extra [place] 1 [id number] 951219 038448 155263 5 Support 182cm Scientific wire ([id number]) INFLATOR Merit Merit 1 SZ5129 886055 585563 556507 15 BasixCompak Medical (OW3339) SILVER RX 2.25 x Medtronic 1 [id number] 116735 5056065 391359 5 [id number] 22 stent ([id number]) SILVER RX 2.75 x Medtronic 1 [id number] 542163 4982720 031375 5 [id number] 15 stent ([id number]) TR BAND Terumo 1 [id number] 273788 663740 083643 40 Standard ([id number]) Signature Audit [place] Stage Time Signature Unsigned Intra-Procedure 02/27/2018 Ruthann Xie 2:46:20 PM RT(R) Signatures Monitor : Ruthann Xie RT Signature : Date : Time : [facility] [address] [place] [address]
--- NOTE | ~2018-02-27 | CN ---
PATIENT NAME:SAROJ GUTIERREZ MEDICAL RECORD: [id number] : 50 LOCATION:D.KRISTAN ADMIT DATE: ACCOUNT: [id number] CONSULTING PHYSICIAN: GARO TANNER MD REFERRING PHYSICIAN: GARO TANNER MD DATE OF CONSULTATION: 02/27/2018 DIAGNOSES: 1. Angina. 2. Coronary artery disease. 3. Previous PTCA stent. 4. Hypertension. HISTORY OF PRESENT ILLNESS: This is a gentleman with a past history of coronary artery disease, relatively recent PTCA stent, who has had recurrent episodes of chest pain, chest burning compatible with angina just like that of his previous angina. It has been in an escalating fashion. He presents to the Emergency Room after having multiple episodes overnight and this morning. PHYSICAL EXAMINATION: GENERAL APPEARANCE: Well-nourished, well-developed, appears stated age. Level of distress, comfortable. PSYCHIATRIC: Mental status, alert, normal affect. Orientation, oriented to time, place and person. EYES: Lids and conjunctiva, noninjected. No discharge, no pallor. ENT: Lips, teeth, gums, normal dentition. Oropharynx, no cyanosis, no pallor. NECK: Carotid arteries, bilateral normal upstroke, no bruits, no thrills. JUGULAR VEINS: No jugular venous pressure or distention. CERVICAL LYMPH NODES: Nontender, nonenlarged. THYROID: Not enlarged. Nontender. No nodules. LUNGS: Respiratory effort, unlabored. CHEST: Normal curvature. No thoracic deformity. No chest wall tenderness. Percussion, resonant. Auscultation, clear. No wheezes, no rales, no rhonchi. CARDIOVASCULAR: Precordial exam, nondisplaced. No heaves or pericardial thrills. Rate and rhythm, regular. Heart sounds, normal S1, normal S2. No S3, no gallop, no rub. Systolic murmur, not heard. Diastolic murmur, not heard. EXTREMITIES: No cyanosis, no edema. Peripheral pulses, full and equal in all extremities, except as noted. No bruits appreciated. ABDOMEN: Soft, nondistended. Normal aorta. No bruit. Nontender. No masses. Liver, nontender, no hepatomegaly. Spleen, nontender, no splenomegaly. MUSCULOSKELETAL: No joint tenderness. No joint swelling. No erythema. NEUROLOGICAL: Normal gait, normal strength, normal tone. SKIN: Warm and dry. REVIEW OF SYSTEMS: The patient reports easy bruising but reports no swollen glands. The patient reports no fever, no night sweats, no significant weight gain, no significant weight loss. No significant exercise tolerance. The patient reports no dry eyes, no irritation, no vision change. Patient reports no difficulty hearing and no ear pain. Patient reports no frequent nose bleeds or nose and sinus problems. Patient reports on arm pain on exertion. No shortness of breath while lying down. No history of heart murmur. Patient reports no cough, no wheezing or coughing up blood. Patient reports no abdominal pain, no vomiting. Normal appetite. No diarrhea and not vomiting blood. No nausea and no constipation. Patient reports no incontinence. No difficulty urinating. No hematuria. No increased frequency. Patient reports CONSULT REPORT [id number] SAROJ GUTIERREZ no muscle aches. No weakness, no arthralgias, no back pain. No swelling of the extremities. Patient reports no abnormal mole, no jaundice, no rashes. Reports no loss of consciousness. No weakness and no numbness. No seizures, dizziness, or headaches. The patient reports no depression, no sleep disturbance, feeling safe in a relationship and no alcohol abuse. Patient reports on fatigue. Reports no runny nose or sinus pressure. No itching, no hives, and no frequent sneezing. OVERALL IMPRESSION: Angina in an unstable escalating fashion. We will proceed with repeat coronary angiography. Further care depends upon findings of the angiography. TRANSINT:[id number] Voice Confirmation ID: [id number] DOCUMENT ID: [id number] GARO TANNER MD at 1913 CC: [id number] DICTATION DATE: 02/27/18 1259 COLD ROLLING COORDINATOR: 02/27/18 1315 DEP CLI 02/27/18 [facility] [address] [place] [address]
--- NOTE | ~2018-02-27 | OP ---
PATIENT NAME: SAROJ GUTIERREZ MEDICAL RECORD: [id number] :50 LOCATION:D.CAT ADMISSION DATE: SURGEON: GARO TANNER MD DATE OF OPERATION: 02/27/2018 PROCEDURES: 1. PTCA stent LAD. 2. Intravascular ultrasound. 3. Left heart catheterization. 4. Selective coronary angiography. 5. Left ventriculogram. INDICATION: Unstable angina. PROCEDURE IN DETAIL: After informed consent was obtained and after detailed description of risks, benefits as well as alternative therapies, the patient elected to proceed with angiogram and angioplasty. The right radial area was prepped and draped in normal sterile fashion. Right radial artery was cannulated via modified Seldinger technique with placement of 6-Tamazight sheath. All catheters exchanged through this sheath. FINDINGS: The left ventriculogram was performed in standard 30-degree MAO view, reveals good cardiac wall motion throughout all segments. Overall ejection fraction estimated 60%. SELECTIVE CORONARY ANGIOGRAPHY: 1. Left anterior descending had 70% stenosis proximally confirmed by intravascular ultrasound, 80% stenosis in mid vessel. 2. Left circumflex has mild irregularities, but no flow-limiting stenosis. 3. The right coronary has previously placed stents, these are widely patent with no significant restenosis. No disease elsewise at the RCA or its branches. PTCA STENT OF THE LAD: Stents used were 2.25 x 26 and 3.0 x 15, both were Dusty stents. Result was 0% residual stenosis. OVERALL IMPRESSION: Successful PTCA stent of the LAD going from 85% initial stenosis to 0% residual. TRANSINT:[id number] Voice Confirmation ID: [id number] DOCUMENT ID: [id number] GARO TANNER MD at 1913 CC: [id number] DICTATION DATE: 02/27/18 1443 NNPS: 02/27/18 1620 DEP CLI 02/27/18 [facility] [id number] [place] [address]
[2018-02-27 11:12] VITALS: Ht 172.7 cm; Wt 100.0 kg
[2018-02-27 11:50] LABS: BASOPHILS 0.2 % (0-2); EOSINOPHILS 2.9 % (0-7); HEMOGLOBIN 15.6 g/dL (13.5-17.5); IMMATURE GRANULOCYTES 0.4 % (0-5); LYMPHOCYTES 28.2 % (15-50); MCH 32.4 pg (26.0-34.0); MCHC 34.7 g/dL (31.0-37.0); MCV 93.6 fL (80.0-100.0); MEAN PLATELET VOLUME 10.3 fL (7.4-10.4); MONOCYTES 6.7 % (2-11); NEUTROPHILS 61.6 % (40-80); PLATELET COUNT 144 10x3/uL (130-400); RBC 4.81 10x6/uL (4.20-6.10); RDW 13.6 % (11.5-14.5); WBC 8.2 10x3/uL (4.8-10.8)
[2018-02-27 12:07] LABS: APTT 26.7 SECONDS (22.8-39.4); INR 1.05 (0.85-1.17); PROTIME 13.3 SECONDS (11.6-15.0)
[2018-02-27 12:14] LABS: ALBUMIN 3.9 g/dL (3.4-5.0); ALKALINE PHOSPHATASE 52 U/L (46-116); ALT (SGPT) 35 U/L (10-68); BILIRUBIN - TOTAL 0.36 mg/dL (0.2-1.3); CALC OSMOLALITY 289 mosm/kg (275-300); CALCIUM 9.1 mg/dL (8.5-10.1); CARBON DIOXIDE 29.8 mmol/L (21.0-32.0); CHLORIDE - SERUM 104 mmol/L (98-107); GLUCOSE 105 mg/dL (74-106); POTASSIUM - SERUM 3.7 mmol/L (3.5-5.1); PROTEIN - SERUM 7.2 g/dL (6.4-8.2); SODIUM 144 mmol/L (136-145); UREA NITROGEN 22 mg/dL (7-18); eGFR NON AFRICAN AMERICAN 79 mL/min (90-120)
[2018-02-27 12:22] LABS: CKMB 3.2 U/L (0.0-3.6); CREATINE KINASE 160 UL (21-232); MAGNESIUM - SERUM 1.9 mg/dL (1.8-2.4); TROPONIN-I < 0.017 ng/mL (0.000-0.060)
[2018-02-27 13:56] VITALS: BP 139/68
== END 2018-02-27 18:13 | disposition home or self-care (01) ==
LOC: D.CATH 11:05 → D.ER 11:05 → EDSTATUS 13:26 → D.CLR 14:49 → D.CATH 18:13
PROVIDERS: Family Medicine
DX: I25.110 Atherosclerotic heart disease of native coronary artery with unstable angina pectoris (principal); I10 Essential (primary) hypertension
CPT/HCPCS: 93458; C9600; 92978

== ENCOUNTER 2018-05-06 08:46 | Outpatient (CLI) | payer MEDICARE, OTHER ==
[~2018-05-06] VITALS: Ht 172.7 cm; Wt 97.3 kg
--- NOTE | ~2018-05-06 | HEMODYNAMI ---
PATIENT:SAROJ GUTIERREZ MEDICAL RECORD: [id number] : 50 LOCATION:DTRENT ADMISSION DATE: 05/06/18 Generatedon:05/06/201812:43 Patient name: SAROJ GUTIERREZ Patient #: [id number] SSN: DO B: 1950 Date of study: 05/06/2018 Page: Of Hemodynamic Procedure Report Patient Data Patient Demographics Procedure consent was obtained First Name: SAROJ Gender: Male Last Name: MATT : 1950 [facility] Initial: ODILIA Age: 68 year(s) Patient #: [id number] Race: Additional ID: [id number] Contact details [address]: [address] [place] [address] State: [place] City: [place] Zip code: [address] Past Medical History Allergies: No known allergies Admission Admission Data Admission Date: 05/06/2018 Admission Time: 8:46 Lab Results Lab Result Date: 05/06/2018 Lab Result Time: 0:00 Biochemistry Name Units Result Min Max BUN mg/dl 18 --(---*)-- 7 18 Creatinine mg/dl 1 --(--*-)-- 0.6 1.3 CBC Name Units Result Min Max Hemoglobin g/dl 15.8 --(--*-)-- 13.5 17.5 Procedure Procedure Types Cath Procedure Diagnostic Procedure [facility] w/Coronaries FFR/IVUS Intra-Coronary IVUS Initial Sedation Charges Moderate Sedation up to 15 minutes PCI Procedure PTCA PTCA Initial Peripheral Cath Diagnostic Procedure Signal System Testing Maintainer Peripheral Procedures Four Vessel Arteriogram Procedure Description Procedure Date Procedure Date: 05/06/2018 Procedure Start Time: 12:17 Procedure End Time: 12:41 Procedure Staff Name Function Shine Evans MD Performing Physician Manoj Parker RT Scrub Amy Marques RT Monitor Javi Aranda RN Nurse Procedure Data Cath Procedure Fluoroscopy Diagnostic fluoroscopy Total fluoroscopy Time: 4.5 time: 4.5 min min Diagnostic fluoroscopy Total fluoroscopy dose: 414 dose: 414 mGy mGy Contrast Material Contrast Material Type Amount (ml) Isovue 300 121 Entry Location Entry Primary Successful Side Size Upsize Upsize Entry Closure Succes sful Closure Location (Fr) 1 (Fr) 2 (Fr) Remarks Device Remarks Femoral Right 5 Fr 6 Fr Exoseal artery Short Estimated blood loss: 10 ml Diagnostic catheters Device Type Used For End Catheter Placement MULTIPACK Pigtail 5 Fr Procedure catheter MULTIPACK JL 4.0 5Fr Procedure catheter MULTIPACK 3DRC 5Fr Procedure catheter Procedure Complications No complications Procedure Medications Medication Administration Route Dosage Oxygen etCO2 Nasal cannula 2 l/min Heparin Flush Bag added to field 2 bags (1000units/500ml NS) 0.9% NaCl I.V. 100 ml/hr Lidocaine 2% added to field 20 Fentanyl I.V. 50 mcg Versed I.V. 1 mg Fentanyl I.V. 50 mcg Versed I.V. 1 mg Fentanyl I.V. 50 mcg Fentanyl I.V. 50 mcg Heparin Bolus I.V. 4000 units Versed I.V. 1 mg Hemodynamics Rest HGB: 15.8 (g/dl) Heart Rate: 53 (bpm) Snapshots Pre Cath Intra NCS Post Cath Vital Signs Time Heart Resp SPO2 etCO2 NIBP Rhythm Pain Sedation Rate (ipm) (%) (mmHg) (mmHg) Status Level (bpm) 12:06:50 53 17 98 0 110/66(82) NSR 0 (11) 10(A) , No pain 12:11:12 52 17 96 36.8 114/58(83) NSR 0 (11) 10(A) , No pain 12:15:24 53 17 95 33.8 95/62(89) NSR 0 (11) 10(A) , No pain 12:19:40 51 17 94 12 89/54(68) NSR 0 (11) 10(A) , No pain 12:24:54 70 16 94 30.8 114/63(78) NSR 0 (11) 10(A) , No pain 12:29:14 65 16 96 0 117/58(75) NSR 0 (11) 10(A) , No pain 12:33:28 60 17 95 34.5 108/56(99) NSR 0 (11) 10(A) , No pain 12:37:46 70 16 94 33 85/66(80) NSR 0 (11) 10(A) , No pain 12:41:56 73 6 93 32.2 103/58(81) NSR 0 (11) 10(A) , No pain Medications Time Medication Route Dose Verified Delivered Reason Notes Effectiveness by by 12:07:12 Oxygen etCO2 2 Shine Javi Per physician Nasal l/min Nathan Aranda RN cannula 12:07:21 Heparin Flush added 2 Shine Javi used for Bag to bags Nathan Aranda RN procedure (1000units/500ml field NS) 12:07:30 0.9% NaCl I.V. 100 Shine Javi Per physician ml/hr Nathan Aranda RN 12:07:39 Lidocaine 2% added 20ml Shine Shethy used for to vial Nathan Aranda RN procedure field 12:15:51 Fentanyl I.V. 50 Shine Javi for sedation mcg Nathan Aranda RN 12:15:58 Versed I.V. 1 mg Shine Javi for sedation Nathan Aranda RN 12:17:42 Fentanyl I.V. 50 Shine Javi for sedation mcg aNthan Aranda RN 12:17:46 Versed I.V. 1 mg Shine Javi for sedation Nathan Aranda RN 12:28:22 Fentanyl I.V. 50 Shine Javi for sedation mcg Nathan Aranda RN 12:33:10 Fentanyl I.V. 50 Shine Javi for sedation mcg Nathan Aranda RN 12:33:19 Heparin Bolus I.V. 4000 Shine Javi for units Nathan Aranda RN anticoagulation 12:33:25 Versed I.V. 1 mg Shine Shethy for sedation Nathan Aranda RN Procedure Log Time Note 11:40:54 Manoj Parker RT(R) sent for patient. Start room use. 11:48:54 Time tracking: Regular hours (M-F 7:00 - 5:00) 11:48:58 Plan of Care:Hemodynamics will remain stable., Cardiac rhythm will remain stable., Comfort level will be maintained., Respiratory function will remain adequate., Patient/ family verbilizes understanding of procedure., Procedure tolerated without complication., Recovers from procedure without complications.. 11:48:59 Diagnostic Cath status Elective 11:49:00 Signed procedure consent form obtained from patient. 11:49:04 H&P Date Dictated: 05/06/2018 ER History on chart.. 11:49:11 Patient allergic to No known allergies 11:49:41 Lab Result : BUN 18 mg/dl 11:49:41 Lab Result : Hemoglobin 15.8 g/dl 11:49:41 Lab Result : Creatinine 1 mg/dl 11:57:40 Patient received from ED to CCL 3 Alert and oriented. Tansferred to table in Supine position. 11:57:42 Warm blankets applied, and brianna hugger turned on for patient comfort. 11:57:43 Correct patient and procedure confirmed by team. 12:00:42 ECG and BP/O2 sat monitors applied to patient. 12:05:32 Vital chart was started 12:07:12 Oxygen 2 l/min etCO2 Nasal cannula was administered by Javi Aranda RN; Per physician; 12:07:21 Heparin Flush Bag (1000units/500ml NS) 2 bags added to field was administered by Javi Aranda RN; used for procedure; 12:07:30 0.9% NaCl 100 ml/hr I.V. was administered by Javi Aranda RN; Per physician; 12:07:39 Lidocaine 2% 20ml vial added to field was administered by Javi Aranda RN; used for procedure; 12:08:50 Baseline sample Acquired. 12:08:54 Rhythm: sinus bradycardia 12:08:55 Full Disclosure recording started 12:08:56 Pre-procedure instructions explained to patient. 12:08:56 Pre-op teaching completed and patient verbalized understanding. 12:09:03 Family in waiting room. 12:09:04 Patient NPO since Midnight. 12:09:06 Is patient on blood thinner?Yes 12:09:08 ACC The patient was administered the following blood thiners within the last 24 hours: ACCPlavix 12:09:10 Patient diabetic? No. 12:09:14 Previous problem with sedation/anesthesia? No ? 12:09:15 Snore? Yes 12:09:18 Sleep apnea? No 12:09:19 Deviated septum? No 12:09:21 Opens mouth fully? Yes 12:09:22 Sticks out tongue? Yes 12:09:24 Airway obstruction? No ? 12:09:31 Dentures? Yes IN TIGHT 12:12:39 Pre procedure: right dorsailis pedis pulse 1+ Palpable, but thready & weak; easily obliterated 12:12:42 Patient pain scale 0/10 ?. 12:12:47 IV patent on arrival in right forearm with 0.9% NaCl at [facility]. 12:12:48 Lab results completed and on chart. 12:12:52 Right groin area was prepped with chlora-prep and draped in sterile fashion 12:12:53 Alarms reviewed by R. N. 12:12:53 Sharps counted by scrub and verified by R.N. 12:12:57 Use device set Femoral Dx 12:12:58 ACIST Syringe (82984) opened to sterile field. 12:12:59 Bag Decanter (2002S) opened to sterile field. 12:13:00 ACIST Hand Control (00827) opened to sterile field. 12:13:00 ACIST Manifold (19997) opened to sterile field. 12:13:01 Tegaderm 4 x 4 (1626W) opened to sterile field. 12:13:02 Medline Cath Pack ([id number]) opened to sterile field. 12:13:03 DIAGNOSTIC WIRE .035 260cm J wire (338219) opened to sterile field. 12:13:04 DIAGNOSTIC Multipack 5Fr catheter set (HB4144) opened to sterile field. 12:13:05 SHEATH 5FR [place] (MBE947) opened to sterile field. 12:14:05 --------ALL STOP TIME OUT------ 12:14:05 Final Timeout: patient, procedure, and site verified with staff and physician. All members of the team are in agreement. 12:14:09 Right groin site verified by team. 12:14:12 Physical assessment completed. ASA score P 2 - A patient with mild systemic disease as per Shine Evans MD. 12:14:15 Sedation plan: IV Moderate Sedation Medication:Versed, Fentanyl 12:15:51 Fentanyl 50 mcg I.V. was administered by Javi Aranda RN; for sedation; 12:15:58 Versed 1 mg I.V. was administered by Javi Aranda RN; for sedation; 12:17:09 Zero performed for pressure channel P1 12:17:12 Procedure started. 12:17:15 Local anesthetic to right femoral artery with Lidocaine 2% by Shine Evans MD.INITIAL ACCESS ONLY 12:17:42 Fentanyl 50 mcg I.V. was administered by Javi Aranda RN; for sedation; 12:17:46 Versed 1 mg I.V. was administered by Javi Aranda RN; for sedation; 12:19:26 PERCUTANEOUS ENTRY 19GA needle opened to sterile field. 12:21:36 A 5 Fr sheath was inserted into the Right Femoral artery 12::20 A MULTIPACK Pigtail 5 Fr catheter was advanced over the wire and used for Procedure. 12::43 LV gram done using MAO 12::45 Injector settings: Ml/sec: 10, Volume: 20, 12:23:27 EF : 60 % 12:23:30 Catheter removed. 12:23:35 A MULTIPACK JL 4.0 5Fr catheter was advanced over the wire and used for Procedure. 12:24:51 LCA angiography performed. 12:24:52 Catheter removed. 12:24:57 A MULTIPACK 3DRC 5Fr catheter was advanced over the wire and used for Procedure. 12:25:49 RCA angiography performed. 12:26:32 Right carotid angiography performed. 12:26:53 Left carotid angiography performed. 12:27:03 Catheter removed. 12:27:27 SHEATH 6FR [place] (IZX766) opened to sterile field. 12:27:28 INFLATOR Merit BasixCompak (YK3445) opened to sterile field. 12:27:28 CHOICE PT Extra Support 182cm wire ([id number]) opened to sterile field. 12:27:29 [place] Tangirnaq Eagleye IVUS Catheter (03818P) opened to sterile field. 12:27:29 GUIDE 6FR AR 2.0 catheter (FU4PC61) opened to sterile field. 12:28:22 Fentanyl 50 mcg I.V. was administered by Javi Aranda RN; for sedation; 12:28:25 Sheath upsized to a 6 Fr Short. 12:28:30 6 Fr AR 2 guide catheter was inserted over the wire 12:29:08 CHOICE ES 182 wire advanced. 12:29:08 Wire advanced across lesion. 12:32:03 IVUS catheter advanced over wire. 12:32:05 IVUS pass to RCA lesion performed. 12:32:06 IVUS catheter removed over wire. 12:33:10 Fentanyl 50 mcg I.V. was administered by Javi Aranda RN; for sedation; 12:33:17 Inflate balloon Inflation number: 1 A EUPHORA 4.0 x 20 Balloon ([id number]) was prepped and advanced across the Mid RCA, then inflated to 17 RICKIE for 0:10 (min:sec). 12:33:19 Heparin Bolus 4000 units I.V. was administered by Javi Aranda RN; for anticoagulation; 12:33:25 Versed 1 mg I.V. was administered by Javi Aranda RN; for sedation; 12:33:39 Inflation number: 2 The EUPHORA 4.0 x 20 Balloon ([id number]) was reinflated across the Mid RCA, to 17 RICKIE for 0:10 (min:sec). 12:33:48 Inflation number: 3 The EUPHORA 4.0 x 20 Balloon ([id number]) was reinflated across the Mid RCA, to 17 RICKIE for 0:10 (min:sec). 12:34:34 Balloon removed over the wire. 12:34:34 Wire removed. 12:34:38 Guide catheter removed. 12:34:43 EXOSEAL 6Fr (EX600) opened to sterile field. 12:35:18 Sheath removed intact; hemostasis achieved with Exoseal to the Right Femoral artery. 12:35:28 Procedure ended.(Physican Out) 12:35:44 Fluoroscopy time 04.50 minutes. 12:35:49 Fluoroscopy dose: 414 mGy 12:35:49 Flurop Dose total: 414 12:35:53 Contrast amount:Isovue 300 121ml. 12:35:57 Post-op/insertion site Right Femoral artery dressed using a 4 x 4 and Tegaderm. 12:36:01 Post right femoral artery:stable, soft, clean and dry 12:36:05 Post-procedure physical assessment completed. ASA score P 2 - A patient with mild systemic disease as per Shine Evans MD. 12:36:08 Post procedure rhythm: sinus rhythm 12:36:11 Estimated blood loss: 10 ml 12:36:12 Post procedure instruction explained to patient.Patient verbalizes understanding. 12:36:12 Patient needs reinforcement of post procedure teaching. 12:36:51 Procedure type changed to Cath procedure, Diagnostic procedure, LHC, LHC w/Coronaries, FFR/IVUS, Intra-Coronary IVUS Initial, Sedation Charges, Moderate Sedation up to 15 minutes, PCI procedure, PTCA, PTCA Initial, Peripheral Cath Diagnostic Procedure, Signal System Testing Maintainer Peripheral Procedures, Four Vessel Arteriogram 12:41:25 Procedure and supply charges have been captured, reviewed, submitted and are correct. 12:41:29 Procedure Complication : No complications 12:41:31 Vital chart was stopped 12:41:31 See physician's report for complete and final results. 12:41:35 Report given to Pre/Post Procedure Room. 12:41:37 Patient transfered to Pre/Post Procedure Room with Bed. 12:41:39 Procedure ended. 12:41:39 Full Disclosure recording stopped 12:41:43 End room use (Document Last) Intervention Summary Intervention Notes Time ActionType Lesion and Equipment Action# Pressure Duration Attributes Used 12:33:17 Inflate Mid RCA EUPHORA 1 17 00:10 balloon 4.0 x 20 Balloon ([id number]) 12:33:39 Reinflate Mid RCA EUPHORA 2 17 00:10 balloon 4.0 x 20 Balloon ([id number]) 12:33:48 Reinflate Mid RCA EUPHORA 3 17 00:10 balloon 4.0 x 20 Balloon ([id number]) Device Usage Item Name Manufacture Quantity Catalog Number Hospital Part Current Mini mal Lot# / Charge Number Stock Stock Serial# Code ACIST Acist 1 93035 [id number] 885854 517314 20 Syringe Medical (79446) Systems Inc Bag Decanter Microtek 1 2001S 570204 86510 035532 5 (2001S) Medical Inc. ACIST Hand Acist 1 43798 991307 699760 698569 5 Control Medical (86366) Systems Inc ACIST Acist 1 52398 069162 021064 914340 5 Manifold Medical (83802) Systems Inc Tegaderm 4 x 3M 1 1626W 134035 675485 099126 5 4 (1626W) Medline Cath Medline 1 [id number] 529447 40846 728479 5 Pack ([id number]) DIAGNOSTIC St Neri 1 026018 580308 484903 747659 30 WIRE .035 260cm J wire (142510) DIAGNOSTIC Cardinal 1 ZU5363 500391 34244 986744 30 [facility] Health 5Fr catheter set (PF4237) SHEATH 5FR Terumo 1 HHW993 442613 403325 572844 5 [place] (LEA249) PERCUTANEOUS Cook Medical 1 Q45168 920030 982328 5 ENTRY 19GA needle MULTIPACK Cardinal 1 515355 5 Pigtail 5 Fr Health catheter MULTIPACK JL Cardinal 1 112082 5 4.0 5Fr Health catheter MULTIPACK Cardinal 1 597641 5 3DRC 5Fr Health catheter SHEATH 6FR Terumo 1 LHD470 486282 986810 329474 40 [place] (CMM352) INFLATOR Merit 1 FE0385 399883 175746 605147 15 [facility] Medical BasixCompak (CF3863) CHOICE PT [place] 1 [id number] 628366 867594 682280 5 Extra Scientific Support 182cm wire ([id number]) [place] Florissant 1 45420W 897224 498351 509116 8 Tangirnaq Eagleye IVUS Catheter (47286F) GUIDE 6FR AR Medtronic 1 [id number] 067747 43066 841519 1 2.0 catheter (FV4IK61) EUPHORA 4.0 Medtronic 1 [id number] 386874 826077 152681 5 [id number] x 20 Balloon ([id number]) EXOSEAL 6Fr Cardinal 1 EX600 157099 267850 888135 10 (EX600) Health Signature Audit [place] Stage Time Signature Unsigned Intra-Procedure 05/06/2018 Amy Marques 12:43:40 PM RT(R) Signatures Monitor : Amy Marques Signature : RT Date : Time : [facility] [address] [place] [address]
[2018-05-06 08:59] VITALS: Ht 172.7 cm; Wt 97.3 kg
[2018-05-06 09:38] LABS: BASOPHILS 0.1 % (0-2); EOSINOPHILS 4.1 % (0-7); HEMATOCRIT 46.2 % (42.0-54.0); HEMOGLOBIN 15.8 g/dL (13.5-17.5); IMMATURE GRANULOCYTES 0.1 % (0-5); LYMPHOCYTES 28.7 % (15-50); MCHC 34.2 g/dL (31.0-37.0); MCV 93.7 fL (80.0-100.0); MEAN PLATELET VOLUME 10.7 fL (7.4-10.4); MONOCYTES 5.1 % (2-11); NEUTROPHILS 61.9 % (40-80); PLATELET COUNT 130 10x3/uL (130-400); RBC 4.93 10x6/uL (4.20-6.10); RDW 13.5 % (11.5-14.5); WBC 6.8 10x3/uL (4.8-10.8)
[2018-05-06 09:46] LABS: APTT 28.2 SECONDS (22.8-39.4); INR 1.09 (0.85-1.17); PROTIME 13.6 SECONDS (11.6-15.0)
[2018-05-06 09:52] LABS: ALBUMIN 3.7 g/dL (3.4-5.0); ALKALINE PHOSPHATASE 52 U/L (46-116); ALT (SGPT) 33 U/L (10-68); BILIRUBIN - TOTAL 0.26 mg/dL (0.2-1.3); CALC OSMOLALITY 285 mosm/kg (275-300); CALCIUM 9.2 mg/dL (8.5-10.1); CARBON DIOXIDE 27.3 mmol/L (21.0-32.0); CHLORIDE - SERUM 105 mmol/L (98-107); GLUCOSE 112 mg/dL (74-106); POTASSIUM - SERUM 3.8 mmol/L (3.5-5.1); SODIUM 142 mmol/L (136-145); UREA NITROGEN 18 mg/dL (7-18); eGFR NON AFRICAN AMERICAN 79 mL/min (90-120)
[2018-05-06 10:10] LABS: CKMB 1.8 U/L (0.0-3.6); CREATINE KINASE 773 UL (21-232); MAGNESIUM - SERUM 1.9 mg/dL (1.8-2.4); PRO BNP 22 pg/mL (0-125); TROPONIN-I < 0.017 ng/mL (0.000-0.060)
[2018-05-06 10:13] LABS: CKMB 1.8 U/L (0.0-3.6)
[2018-05-06 11:07] VITALS: BP 139/66
--- NOTE | 2018-05-06 12:40 | CN ---
PATIENT NAME:SAROJ GUTIERREZ MEDICAL RECORD: [id number] : 50 LOCATION:D.CAT ADMIT DATE: ACCOUNT: [id number] CONSULTING PHYSICIAN: GARO TANNER MD REFERRING PHYSICIAN: GARO TANNER MD DATE OF CONSULTATION: 05/06/2018 DIAGNOSES: 1. Angina. 2. Coronary artery disease. 3. PTCA and stent of RCA and LAD in the past. 4. Hypertension. 5. Hyperlipidemia. HISTORY OF PRESENT ILLNESS: This is a gentleman with a past history of coronary artery disease, previous PTCA and stent, who has had increasing episodes of chest pressure. PHYSICAL EXAMINATION: GENERAL APPEARANCE: Well-nourished, well-developed, appears stated age. Level of distress, comfortable. PSYCHIATRIC: Mental status, alert, normal affect. Orientation, oriented to time, place and person. EYES: Lids and conjunctiva, noninjected. No discharge, no pallor. ENT: Lips, teeth, gums, normal dentition. Oropharynx, no cyanosis, no pallor. NECK: Carotid arteries, bilateral normal upstroke, no bruits, no thrills. JUGULAR VEINS: No jugular venous pressure or distention. CERVICAL LYMPH NODES: Nontender, nonenlarged. THYROID: Not enlarged. Nontender. No nodules. LUNGS: Respiratory effort, unlabored. CHEST: Normal curvature. No thoracic deformity. No chest wall tenderness. Percussion, resonant. Auscultation, clear. No wheezes, no rales, no rhonchi. CARDIOVASCULAR: Precordial exam, nondisplaced. No heaves or pericardial thrills. Rate and rhythm, regular. Heart sounds, normal S1, normal S2. No S3, no gallop, no rub. Systolic murmur, not heard. Diastolic murmur, not heard. EXTREMITIES: No cyanosis, no edema. Peripheral pulses, full and equal in all extremities, except as noted. No bruits appreciated. ABDOMEN: Soft, nondistended. Normal aorta. No bruit. Nontender. No masses. Liver, nontender, no hepatomegaly. Spleen, nontender, no splenomegaly. MUSCULOSKELETAL: No joint tenderness. No joint swelling. No erythema. NEUROLOGICAL: Normal gait, normal strength, normal tone. SKIN: Warm and dry. OVERALL IMPRESSION: Increasing angina in an unstable fashion. We will proceed with coronary angiography. Further care depends upon findings of the angiography. TRANSINT:[id number] Voice Confirmation ID: [id number] DOCUMENT ID: [id number] CONSULT REPORT [id number] SAROJ GUTIERREZ, GARO GARCIA at 1240 CC: [id number] DICTATION DATE: 05/06/[address] OPENINGS INSPECTOR: 05/06/18 1137 [facility] [address] [place] [address]
--- NOTE | 2018-05-07 14:57 | OP ---
PATIENT NAME: SAROJ GUTIERREZ MEDICAL RECORD: [id number] :50 LOCATION:D.CAT ADMISSION DATE: SURGEON: GARO TANNER MD DATE OF OPERATION: 05/06/2018 PROCEDURES: 1. PTCA of RCA. 2. Intravascular ultrasound of RCA. 3. Left heart catheterization. 4. Selective coronary angiography. 5. Left ventriculogram. 6. Four-vessel carotid and vertebral angiography. INDICATION: Angina, coronary artery disease, previous PTCA stent, dizziness. PROCEDURE IN DETAIL: After informed consent was obtained and after a detailed description of the risks, benefits as well as alternative therapies, the patient elected to proceed with angiogram and angioplasty. The right femoral area was prepped and draped in normal sterile fashion. Right femoral artery was cannulated via modified Seldinger technique with placement of 6-Malay sheath. All catheters exchanged through this sheath. FINDINGS: There was subselection of each subclavian as well as the left carotid, right side common internal and external carotids have mild plaqueing, no stenosis greater than 10% to 20%, no flow-limiting stenosis. Vertebral artery has no significant disease. LEFT SYSTEM: The common internal and external carotids have mild plaquing, none greater than 20%, no flow-limiting stenosis. Vertebral artery has no significant disease. Left ventriculogram was performed in standard 30-degree MAO view, reveals good cardiac wall motion throughout all segments. Overall ejection fraction estimated at 60%. SELECTIVE CORONARY ANGIOGRAPHY: 1. Left main has no significant angiographic disease. 2. Left anterior descending has previously placed stent. This is widely patent with no significant restenosis. No disease elsewise throughout the LAD or its branches. 3. Left circumflex has mild irregularities, but no flow-limiting stenosis. 4. The right coronary has previously placed stents. Intravascular ultrasound reveals there is greater than 70% in-stent restenosis in the mid vessel. HIGH PRESSURE PTCA OF THE RCA: We used a 4-0 balloon taken to 17 atmospheres. Result was 0% residual stenosis. OVERALL IMPRESSION: Pressure percutaneous transluminal coronary angioplasty for in-stent restenosis of the right coronary artery going from greater than 70% initial stenosis to 0% residual. TRANSINT:[id number] Voice Confirmation ID: [id number] DOCUMENT ID: [id number] OPERATIVE REPORT [id number] SAROJ GUTIERREZ GARO TANNER MD at 1457 CC: [id number] DICTATION DATE: 05/06/18 1239 RESPITE PROVIDER: 05/06/18 1331 DEP CLI 05/06/18 [place] [id number] [place] [address]
== END 2018-05-06 16:44 | disposition home or self-care (01) ==
LOC: D.CATH 08:46 → D.ER 08:46 → EDSTATUS 10:55 → D.CATH 16:44
PROVIDERS: Family Medicine
DX: I25.110 Atherosclerotic heart disease of native coronary artery with unstable angina pectoris (principal); I10 Essential (primary) hypertension; E78.5 Hyperlipidemia, unspecified; Z95.5 Presence of coronary angioplasty implant and graft; Z01.812 Encounter for preprocedural laboratory examination

== ENCOUNTER → 2018-11-06 10:35 | Outpatient (CLI) | payer MEDICARE, OTHER ==
[2018-05-06 08:59] VITALS: BMI 32.6
[~2018-11-06 10:35] MED LIST changes: +OMEPRAZOLE20 M1 PO
--- NOTE | 2018-11-09 09:50 | ST ---
PATIENT:SAROJ GUTIERREZ MEDICAL RECORD: [id number] SEX: M LOCATION:[facility] ORDER #: ADMISSION DATE: 11/06/18 AGE OF PATIENT: 68 REFERRING PHYSICIAN: INTERPRETING PHYSICIAN: GARO TANNER MD DATE OF SERVICE: 11/06/2018 NUCLEAR STRESS TEST INDICATION: Angina, coronary artery disease, shortness of breath, hypertension. He was exercised on standard Lexiscan protocol with 27 mCi of sestamibi injected at peak stress 9 mCi used previously for rest images. FINDINGS: Gated SPECT reveals a preserved ejection fraction at 63% with decreased thickening and brightening of the inferior segments. SPECT IMAGING: Cardiolite was used as myocardial perfusion agent. There is a fixed perfusion defect inferiorly and this includes the basal, mid apical, inferior segments; however, there is a large area of reversibility anteriorly, septally, and apically. This includes apical, septal, mid septal, and basal septal, and the apex itself. The degree of reversibility is moderate to severe. The amount of myocardial involved is extremely large. OVERALL IMPRESSION: This is a markedly abnormal high risk nuclear stress test with large area of reversibility anteriorly, septally, and apically as well as a fixed fusion defect inferiorly suggestive of multivessel coronary artery disease. We will proceed with coronary angiography as followup study. TRANSINT:[id number] Voice Confirmation ID: [id number] DOCUMENT ID: [id number] GARO TANNER MD at 0950 CC: SUDHIR ORTIZ APN [id number] DICTATION DATE: 11/06/18 1421 ELECTRICAL TECHNICIAN: 11/07/18 0041 [facility] CLI 11/06/18 [place] [id number] [place] [id number]
== END | disposition home or self-care (01) ==
LOC: D.HCCARDIO 10:30
PROVIDERS: ATTEND Internal Medicine Interventional Cardiology
DX: I25.119 Atherosclerotic heart disease of native coronary artery with unspecified angina pectoris (principal)

== ENCOUNTER 2018-11-10 08:29 | Outpatient (CLI) | payer MEDICARE, OTHER ==
[~2018-11-10] VITALS: Ht 172.7 cm; Wt 90.9 kg
--- NOTE | ~2018-11-10 | OP ---
PATIENT NAME: SAROJ GUTIERREZ MEDICAL RECORD: [id number] :50 LOCATION:D.CAT ADMISSION DATE: SURGEON: GARO TANNER MD DATE OF OPERATION: 11/10/2018 PROCEDURES: 1. PTCA and stent, LAD. 2. IFR. 3. Left heart catheterization. 4. Selective coronary angiography. 5. Left ventriculogram. INDICATION: Angina and coronary artery disease. PROCEDURE IN DETAIL: After informed consent was obtained with detailed description of risks and benefits as well as alternative therapies, the patient elected to proceed with angiogram and angioplasty. The right radial area was prepped and draped in normal sterile fashion. The right radial artery was cannulated via modified Seldinger technique with placement of 6-Burmese sheath. All catheters were exchanged through this sheath. FINDINGS: The left ventriculogram performed in standard 30-degree MAO view reveals good cardiac wall motion throughout all segments. Overall ejection fraction is estimated at 60%. SELECTIVE CORONARY ANGIOGRAPHY: 1. Left main is with no significant angiographic disease. 2. Left anterior descending has 95% stenosis proximally followed by 90 plus percent stenosis in the mid vessel. 3. Left circumflex has a questionable stenosis; however, IFR was normal. 4. Right coronary has mild irregularities, but no flow-limiting stenosis. PTCA AND STENT OF THE LAD: Stents used were 3.5 x 23 mm [place] and 2.5 x 26 mm [place]. Result was 0% residual stenosis. OVERALL IMPRESSION: Successful PTCA and stent of the LAD, going from 95% initial stenosis to 0% residual. TRANSINT:[id number] Voice Confirmation ID: [id number] DOCUMENT ID: [id number] GARO TANNER MD CC: [id number] DICTATION DATE: 11/10/18 1114 APPLICATION HELPER: 11/10/18 1217 [facility] [address] [place] [address]
--- NOTE | ~2018-11-10 | HEMODYNAMI ---
PATIENT:SAROJ GUTIERREZ MEDICAL RECORD: [id number] : 50 LOCATION:[facility] ADMISSION DATE: 11/10/18 Generatedon:11/10/201811:17 Patient name: SAROJ GUTIERREZ Patient #: [id number] SSN: DO B: 1950 Date of study: 11/10/2018 Page: Of Hemodynamic Procedure Report Patient Data Patient Demographics Procedure consent was obtained First Name: SAROJ Gender: Male Last Name: MATT : 1950 [facility] Initial: ODILIA Age: 68 year(s) Patient #: [id number] Race: Additional ID: [id number] Contact details Address: [address] [place] [address] State: [place] City: [place] Zip code: [address] Past Medical History Allergies: No allergy information Admission Admission Data Admission Date: 11/10/2018 Admission Time: 8:29 Weight (lbs.): 200.62 Weight (kg.): 91 Lab Results Lab Result Date: 11/10/2018 Lab Result Time: 0:00 Biochemistry Name Units Result Min Max BUN mg/dl 24 --(----)-* 7 18 Creatinine mg/dl 0.9 --(-*--)-- 0.6 1.3 CBC Name Units Result Min Max Hematocrit % 44.5 --(*---)-- 42 54 Hemoglobin g/dl 15.8 --(--*-)-- 13.5 17.5 Procedure Procedure Types Cath Procedure Diagnostic Procedure LHC LHC w/Coronaries FFR/IVUS FFR Initial Sedation Charges Moderate Sedation up to 15 minutes PCI Procedure Coronary Stent Coronary Stent Initial Procedure Description Procedure Date Procedure Date: 11/10/2018 Procedure Start Time: 10:52 Procedure End Time: 11:16 Procedure Staff Name Function Shine Evans MD Performing Physician Amy Marques RT Monitor Ruthann Xie RT Scrub Hetal Whitmore RN Nurse Kalani Koch RN Carbonating Stone Cleaner Procedure Data Cath Procedure Fluoroscopy Diagnostic fluoroscopy Total fluoroscopy Time: 4.6 time: 4.6 min min Diagnostic fluoroscopy Total fluoroscopy dose: dose: 1164 mGy 1164 mGy Contrast Material Contrast Material Type Amount (ml) Isovue 300 136 Entry Location Entry Primary Successful Side Size Upsize Upsize Entry Closure Succes sful Closure Location (Fr) 1 (Fr) 2 (Fr) Remarks Device Remarks Radial Right 6 Fr artery Short Estimated blood loss: 10 ml Diagnostic catheters Device Type Used For End Catheter Placement DIAGNOSTIC Turtlepoint 110cm 5 Procedure Fr catheter ([id number]) Procedure Complications No complications Procedure Medications Medication Administration Route Dosage Oxygen etCO2 Nasal cannula 2 l/min Lidocaine 2% added to field 20 Heparin Flush Bag added to field 2 bags (1000units/500ml NS) 0.9% NaCl I.V. 100 ml/hr Radial Cocktail added to field 1 syringe (Verapamil 2mg/Nitro 400mcg/Heparin 1500units) Versed I.V. 2 mg Fentanyl I.V. 50 mcg Versed I.V. 1 mg Fentanyl I.V. 50 mcg Versed I.V. 1 mg Heparin Bolus I.V. 4000 units Versed I.V. 1 mg Fentanyl I.V. 50 mcg Versed I.V. 1 mg Fentanyl I.V. 50 mcg Hemodynamics Rest HGB: 15.8 (g/dl) Heart Rate: 56 (bpm) Snapshots Pre Cath Intra NCS Post Cath Vital Signs Time Heart Resp SPO2 etCO2 NIBP (mmHg) Rhythm Pain Sedation Rate (ipm) (%) (mmHg) Status Level (bpm) 10:36:17 57 21 98 42 122/63(84) NSR 0 (11) 10(A) , No pain 10:40:31 58 10 95 0 117/72(82) NSR 0 (11) 10(A) , No pain 10:44:45 53 10 95 15.7 122/70(85) NSR 0 (11) 10(A) , No pain 10:49:03 58 10 94 0 124/70(90) NSR 0 (11) 9(A) , No pain 10:53:17 63 10 94 0 118/70(92) NSR 0 (11) 9(A) , No pain 10:57:29 79 11 93 36 105/71(90) NSR 0 (11) 9(A) , No pain 11:01:41 70 14 94 12 109/66(78) NSR 0 (11) 10(A) , No pain 11:05:53 63 13 95 0 110/65(86) NSR 0 (11) 9(A) , No pain 11:11:06 72 15 94 21 109/67(101) NSR 0 (11) 10(A) , No pain 11:16:05 62 7 28.5 Measuring NSR 0 (11) 10(A) , No pain 11:16:28 65 6 94 12 112/63(82) NSR 0 (11) 10(A) , No pain Medications Time Medication Route Dose Verified Delivered Reason Not es Effectiveness by by 10:31:18 Oxygen etCO2 2 l/min Shine Buffie used for Nasal Nathan Koch RN procedure cannula 10:31:43 Lidocaine 2% added 20ml Shine Shine for local to vial Nathan Evans MD anesthetic field 10:31:49 Heparin Flush added 2 bags Shine Riojas used for Bag to Nathan Evans MD procedure (1000units/500ml field NS) 10:32:03 0.9% NaCl I.V. 100 Shine Buffie Per physician ml/hr Nathan Koch RN 10:37:42 Radial Cocktail added 1 Shine Riojas for (Verapamil to syringe Nathan Evans MD vasodilation 2mg/Nitro field 400mcg/Heparin 1500units) 10:45:19 Versed I.V. 2 mg Shine Buffie for sedation Nathan Koch RN 10:45:25 Fentanyl I.V. 50 mcg Shine Buffie for sedation Nathan Koch RN 10:50:40 Versed I.V. 1 mg Shine Buffie for sedation Nathan Koch RN 10:50:44 Fentanyl I.V. 50 mcg Shine Buffie for sedation Nathan Koch RN 10:56:11 Versed I.V. 1 mg Shine Buffie for sedation Nathan Koch RN 10:59:19 Heparin Bolus I.V. 4000 Shine Buffie for yuli ified units Nathan Koch RN anticoagulation with dr evans 11:00:42 Versed I.V. 1 mg Shine Buffie for sedation Nathan Koch RN 11:00:46 Fentanyl I.V. 50 mcg Shine Buffie for sedation Nathan Koch RN 11:05:54 Versed I.V. 1 mg Shine Uriarte for sedation Nathan Koch RN 11:05:57 Fentanyl I.V. 50 mcg Shine Uriarte for sedation Nathan Koch RN Procedure Log Time Note 10:22:08 Diagnostic Cath Status : Elective 10:22:32 Amy Marques RT(R) sent for patient. Start room use. 10:22:33 Time tracking: Regular hours (M-F 7:00 - 5:00) 10:22:37 Plan of Care:Hemodynamics will remain stable., Cardiac rhythm will remain stable., Comfort level will be maintained., Respiratory function will remain adequate., Patient/ family verbilizes understanding of procedure., Procedure tolerated without complication., Recovers from procedure without complications.. 10:24:54 H&P Date Dictated: 11/04/2018 Within 30 days and on chart., H&P Addendum completed by physician on day of procedure. (MUST COMPLETE FOR ALL OUTPATIENTS). 10:25:03 Patient allergic to No allergy information 10:25:24 Patient received from Pre/Post Procedure Room to CCL 1 Alert and oriented. Tansferred to table in Prone position. 10:25:27 Signed procedure consent form obtained from patient. 10:25:28 Warm blankets applied, and brianna hugger turned on for patient comfort. 10:25:29 Correct patient and procedure confirmed by team. 10:25:29 ECG and BP/O2 sat monitors applied to patient. 10:31:18 Oxygen 2 l/min etCO2 Nasal cannula was administered by Kalani Koch RN; used for procedure; 10:31:43 Lidocaine 2% 20ml vial added to field was administered by Shine Evans MD; for local anesthetic; 10:31:49 Heparin Flush Bag (1000units/500ml NS) 2 bags added to field was administered by Shine Evans MD; used for procedure; 10:32:03 0.9% NaCl 100 ml/hr I.V. was administered by Kalani Koch RN; Per physician; 10:35:07 Vital chart was started 10:35:10 Baseline sample Acquired. 10:35:13 Rhythm: sinus bradycardia 10:35:16 Full Disclosure recording started 10:36:03 Pre-procedure instructions explained to patient. 10:36:04 Pre-op teaching completed and patient verbalized understanding. 10:36:12 Family in patients room. 10:36:14 Patient NPO since Midnight. 10:36:16 Is patient on blood thinner?Yes 10:36:19 ACC The patient was administered the following blood thiners within the last 24 hours: ACCPlavix 10:36:33 PATIENT PUT HIMSELF BACK ON PLAVIX 10:36:38 Patient diabetic? No. 10:36:41 Previous problem with sedation/anesthesia? No ? 10:36:43 Snore? Yes 10:36:44 Sleep apnea? No 10:36:45 Deviated septum? No 10:36:46 Opens mouth fully? Yes 10:36:47 Sticks out tongue? Yes 10:36:48 Airway obstruction? No ? 10:36:52 Dentures? Yes IN TIGHT 10:36:56 Pre procedure: right dorsailis pedis pulse 2+ Normal; easily identifiable; not easily obliterated 10:37:04 IV patent on arrival in left hand with 0.9% NaCl at [facility]. 10:37:42 Radial Cocktail (Verapamil 2mg/Nitro 400mcg/Heparin 1500units) 1 syringe added to field was administered by Shine Evans MD; for vasodilation; 10:37:58 Patient Weight : 200.62 lbs 10:38:48 Lab Result : BUN 24 mg/dl 10:38:48 Lab Result : Creatinine 0.9 mg/dl 10:38:48 Lab Result : Hemoglobin 15.8 g/dl 10:38:48 Lab Result : Hematocrit 44.5 % 10:38:52 Lab results completed and on chart. 10:38:54 Right Radial & Right Groin area was prepped with chlora-prep and draped in sterile fashion 10:38:55 Alarms reviewed by R. N. 10:38:55 Sharps counted by scrub and verified by R.N. 10:38:57 Use device set Radial Dx or PCI 10:38:58 ACIST Syringe (53017) opened to sterile field. 10:38:59 Medline Cath Pack ([id number]) opened to sterile field. 10:39:00 Bag Decanter () opened to sterile field. 10:39:01 ACIST Hand Control (20151) opened to sterile field. 10:39:01 ACIST Manifold (03814) opened to sterile field. 10:39:01 Tegaderm 4 x 4 (1626W) opened to sterile field. 10:39:05 MBrace Wrist Support ([id number]) opened to sterile field. 10:39:05 NEEDLE Cook 21G 4cm Radial (G52989) opened to sterile field. 10:39:07 EMERALD Guide Wire (844-092) opened to sterile field. 10:39:07 SHEATH 6FR Slender (80-3648) opened to sterile field. 10:43:39 --------ALL STOP TIME OUT------ 10:43:39 Final Timeout: patient, procedure, and site verified with staff and physician. All members of the team are in agreement. 10:43:41 Right Radial & Right Groin site verified by team. 10:43:44 Fire Safety Assessment: A--An alcohol-based skin anteseptic being used preoperatively., C--Open oxygen or nitrous oxide is being used., D--An ESU, laser, or fiber-optic light is being used. 10:43:47 Physical assessment completed. ASA score P 2 - A patient with mild systemic disease as per Shine Evans MD. 10:43:50 Maximum allowable contrast does (3.7 X eGFR X 0.75)247 ml. 10:43:54 Sedation plan: IV Moderate Sedation Medication:Versed, Fentanyl 10:44:04 Zero performed for pressure channel P1 10:45:19 Versed 2 mg I.V. was administered by Kalani Koch RN; for sedation; 10:45:25 Fentanyl 50 mcg I.V. was administered by Kalani Koch RN; for sedation; 10:50:40 Versed 1 mg I.V. was administered by Kalani Koch RN; for sedation; 10:50:44 Fentanyl 50 mcg I.V. was administered by Kalani Koch RN; for sedation; 10:52:17 Procedure started. 10:52:23 Local anesthetic to right radial artery with Lidocaine 2% by Shine Evans MD.INITIAL ACCESS ONLY 10:53:00 A 6 Fr Short sheath was inserted into the Right Radial artery 10:53:14 A DIAGNOSTIC Turtlepoint 110cm 5 Fr catheter (510056) was advanced over the wire and used for Procedure. 10:54:58 RCA angiography performed. 10:55:50 Catheter exchanged over wire. 10:56:04 GUIDE 6FR XBLAD 3.5 catheter ([id number]) opened to sterile field. 10:56:11 Versed 1 mg I.V. was administered by Kalani Koch RN; for sedation; 10:56:14 6 Fr XBLAD 3.5 guide catheter was inserted over the wire 10:59:19 Heparin Bolus 4000 units I.V. was administered by Kalani Koch RN; for anticoagulation; verified with dr evans 10:59:53 CHOICE ES 182 wire advanced. 10:59:56 Wire advanced across lesion. 11:00:42 Versed 1 mg I.V. was administered by Kalani Koch RN; for sedation; 11:00:46 Fentanyl 50 mcg I.V. was administered by Kalani Koch RN; for sedation; 11:01:10 The EUPHORA 3.0 x 20 Balloon ([id number]) was advanced and then removed because device failure 11:02:42 Inflate balloon Inflation number: 1 A EUPHORA 3.0 x 20 Balloon ([id number]) was prepped and advanced across the Prox LAD , then inflated to 17 RICKIE for 0:10 (min:sec) . 11:03:29 Balloon removed over the wire. 11:05:12 Place stent Inflation Number: 2 A JASMINA RX 3.0 x 23 stent ([id number]) was prepped and advanced across the Prox LAD . The stent was deployed at 19 RICKIE for 0:10 (min:sec) . 11:05:54 Versed 1 mg I.V. was administered by Kalani Koch RN; for sedation; 11:05:55 Stent catheter was removed intact over wire. 11:05:57 Fentanyl 50 mcg I.V. was administered by Kalani Koch RN; for sedation; 11:07:40 Place stent Inflation Number: 1 A SILVER RX 2.5 x 30 stent ([id number]) was prepped and advanced across the Dist LAD . The stent was deployed at 13 RICKIE for 0:10 (min:sec) . 11:07:48 Stent catheter was removed intact over wire. 11:07:49 Wire removed. 11:08:21 Patterson Verrata Plus pressure wire ([id number]) opened to sterile field. 11:09:17 FFR/IFR wire advanced. 11:09:22 Wire advanced across lesion. 11:09:54 [facility] lesion measured at .99 with IFR 11:10:19 Wire removed. 11:10:22 Guide catheter removed. 11:10:32 TR BAND Standard ([id number]) opened to sterile field. 11:10:40 Procedure ended.(Physican Out) 11:11:06 Fluoroscopy time 04.60 minutes. 11:11:09 Flurop Dose total: 1164 11:11: Fluoroscopy dose: 1164 mGy 11:11:13 Contrast amount:Isovue 300 136ml. 11:11:14 Sharps counted by scrub and verified by R.N. 11:11:16 TR band inflated with 10cc of air. 11:11:18 Post-procedure physical assessment completed. ASA score P 2 - A patient with mild systemic disease as per Shine Evans MD. 11:11:21 Post procedure rhythm: sinus rhythm 11:11:24 Estimated blood loss: 10 ml 11:11:25 Post procedure instruction explained to patient.Patient verbalizes understanding. 11:11:25 Patient needs reinforcement of post procedure teaching. 11:12:06 Procedure type changed to Cath procedure, Diagnostic procedure, LHC, LHC w/Coronaries, FFR/IVUS, FFR Initial, Sedation Charges, Moderate Sedation up to 15 minutes, PCI procedure, Coronary Stent, Coronary Stent Initial 11:14:09 Procedure and supply charges have been captured, reviewed, submitted and are correct. 11:14:12 Procedure Complication : No complications 11:16:22 Vital chart was stopped 11:16:23 See physician's report for complete and final results. 11:16:25 Report given to Pre/Post Procedure Room. 11:16:27 Patient transfered to Pre/Post Procedure Room with Bed. 11:16:29 Procedure ended. 11:16:29 Full Disclosure recording stopped Intervention Summary Intervention Notes Time ActionType Lesion and Equipment Used Action# Pressure Duration Attributes 11:01:10 Discard EUPHORA 3.0 x Balloon 20 Balloon ([id number]) 11:02:42 Inflate Prox LAD EUPHORA 3.0 x 1 17 00:10 balloon 20 Balloon ([id number]) 11:05:12 Place stent Prox LAD JASMINA RX 3.0 2 19 00:10 x 23 stent ([id number]) 11:07:40 Place stent Dist LAD SILVER RX 2.5 x 1 13 00:10 30 stent ([id number]) Device Usage Item Name Manufacture Quantity Catalog Hospital Part Current Minimal Lot# / Number Charge Number Stock Stock Serial# Code ACIST Syringe Acist 1 94600 489151 807085 149849 20 (54856) Medical Systems Inc Medline Cath Medline 1 [id number] 109901 32393 176580 5 Pack ([id number]) Bag Decanter Microtek 1 2001S 994304 71618 985362 5 (2001S) Medical Inc. ACIST Hand Acist 1 40686 190483 908424 244975 5 Control Medical (23490) Systems Inc ACIST Manifold Acist 1 00743 954562 162994 373757 5 (92320) Medical Systems Inc Tegaderm 4 x 4 3M 1 1626W 226265 541601 372674 5 (1626W) MBrace Wrist Advanced 1 140-0250-00 766758 26325 332043 5 Support Vascular ([id number]) Dynamics NEEDLE [facility] Medical 1 M18349 393249 449912 049132 5 21G 4cm Radial (V75280) EMERALD Guide Cardinal 1 502-455 618347 848219 160368 5 Wire (502-455) Health SHEATH 6FR Terumo 1 [id number] 636780 217427 535824 5 Slender (80-1060) DIAGNOSTIC Terumo 1 405013 541302 565798 636628 5 Turtlepoint 110cm 5 Fr catheter (570030) GUIDE 6FR Cardinal 1 [id number] 575451 114066 688183 10 XBLAD 3.5 Health catheter ([id number]) EUPHORA 3.0 x Medtronic 2 [id number] 807080 367472 350181 5 [id number] 20 Balloon [id number] ([id number]) JASMINA RX 3.0 Meeks 1 0860222-37 115327 2035445 464780 5 6187158 x 23 stent Vascular ([id number]) SILVER RX 2.5 x Medtronic 1 [id number] 358437 5831908 084939 5 [id number] 30 stent ([id number]) Patterson Patterson 1 [id number] 986809 339965558 923664 5 Verrata Plus pressure wire (12720C) TR BAND Terumo 1 [id number] 554771 859452 444783 40 Standard ([id number]) Signature Audit [place] Stage Time Signature Unsigned Intra-Procedure 11/10/2018 Amy Marques 11:16:33 AM RT(R) Signatures Monitor : Amy Marques Signature : RT Date : Time : [place] [id number] [place] [id number]
[~2018-11-10 08:29] MED LIST changes: -OMEPRAZOLE20 M1 PO
[2018-11-10 09:05] VITALS: BP 126/68; Ht 172.7 cm; Wt 90.9 kg
[2018-11-10] MEDS ORDERED: OMEPRAZOLE20 M1 PO (09:12)
[2018-11-10 09:20] LABS: BASOPHILS 0.1 % (0-2); EOSINOPHILS 3.1 % (0-7); HEMATOCRIT 44.5 % (42.0-54.0); HEMOGLOBIN 15.8 g/dL (13.5-17.5); IMMATURE GRANULOCYTES 0.3 % (0-5); LYMPHOCYTES 26.7 % (15-50); MCH 32.2 pg (26.0-34.0); MCHC 35.5 g/dL (31.0-37.0); MCV 90.8 fL (80.0-100.0); MEAN PLATELET VOLUME 11.1 fL (7.4-10.4); MONOCYTES 6.3 % (2-11); NEUTROPHILS 63.5 % (40-80); PLATELET COUNT 138 10x3/uL (130-400); RDW 13.8 % (11.5-14.5); WBC 7.8 10x3/uL (4.8-10.8)
[2018-11-10 09:24] LABS: CALC OSMOLALITY 284 mosm/kg (275-300); CALCIUM 9.6 mg/dL (8.5-10.1); CARBON DIOXIDE 29.8 mmol/L (21.0-32.0); CHLORIDE - SERUM 103 mmol/L (98-107); CREATININE - SERUM 0.9 mg/dL (0.6-1.3); GLUCOSE 106 mg/dL (74-106); POTASSIUM - SERUM 3.9 mmol/L (3.5-5.1); SODIUM 141 mmol/L (136-145); UREA NITROGEN 24 mg/dL (7-18); eGFR NON AFRICAN AMERICAN 89 mL/min (90-120)
--- NOTE | 2018-11-10 11:23 | NUR ---
PT ARRIVED BY STRETCHER. PLACED ON MONITORS. ASSESSMENT COMPLETED. FAMILY AT BEDSIDE. DR. TANNER ROUNDED AND SPOKE WITH PT AND PT'S FAMILY.
--- NOTE | 2018-11-10 11:35 | NUR ---
RIGHT RADIAL TR BAND IN PLACE. NO BLEEDING/HEMATOMA NOTED. VSS.
--- NOTE | 2018-11-10 11:40 | NUR ---
PT SITTING UP AND TOLERATING SIPS OF WATER. VSS. RIGHT RADIAL TR BAND IN PLACE. NO BLEEDING/HEMATOMA NOTED.
--- NOTE | 2018-11-10 12:15 | NUR ---
PT SET UP AND GIVEN SANDWICH TRAY AND DRINK. DENIES NAUSEA/PAIN. RIGHT RADIAL TR BAND IN PLACE. NO BLEEDING/HEMATOMA NOTED.
--- NOTE | 2018-11-10 12:57 | NUR ---
PT SITTING UP. TOLERATED FOOD/DRINK. VSS. RIGHT RADIAL TR BAND IN PLACE. NO BLEEDING/HEMATOMA NOTED.
--- NOTE | 2018-11-10 13:30 | NUR ---
PT RESTING COMFORTABLY. DENIES PAIN/NAUSEA. RIGHT RADIAL TR BAND IN PLACE. NO BLEEDING/HEMATOMA NOTED. VSS. WILL CONTINUE TO MONITOR.
--- NOTE | 2018-11-10 14:15 | NUR ---
3cc OF AIR REMOVED FROM TR BAND. PT TOLERATING WELL. NO BLEEDING/HEMATOMA NOTED. VSS. PT RESTING COMFORTABLY WILL CONTINUE TO MONITOR.
--- NOTE | 2018-11-10 14:30 | NUR ---
3cc OF AIR REMOVED FROM TR BAND. NO BLEEDING/HEMATOMA NOTED. TOLERATING WELL.
--- NOTE | 2018-11-10 14:45 | NUR ---
3cc OF AIR REMOVED FROM TR BAND. NO BLEEDING/HEMATOMA NOTED. VSS. RIGHT ARM PIV D/C'D WITH CATH TIP INTACT. TOLERATED WELL. PT INSTRUCTED TO GET UP AND DRESSED AT THIS TIME. FAMILY AT BEDSIDE TO ASSIST.
--- NOTE | 2018-11-10 15:00 | NUR ---
PT AMBULATED TO RESTROOM. VOIDED WITHOUT DIFFICULTY. BACK TO ROOM. DISCUSSED DISCHARGE INSTRUCTIONS TO PT AND PT'S FAMILY. THEY VOICED UNDERSTANDING. TR BAND REMOVED AND DRESSING APPLIED. NO BLEEDING/HEMATOMA NOTED. RIGHT WRIST BRACE IN PLACE. PT INSTRUCTED TO KEEP ON FOR 2 HOURS AFTER HE ARRIVES HOME AND THEN MAY REMOVE.
--- NOTE | 2018-11-10 15:15 | NUR ---
RIGHT WRIST TR BAND IN PLACE. NO BLEEDING/HEMATOMA NOTED. PT TAKEN OUT TO VEHICLE BY WHEELCHAIR. NO S/S OF DISTRESS NOTED. ALL BELONGINGS AND PAPERWORK IN HAND.
== END 2018-11-10 15:15 | disposition home or self-care (01) ==
LOC: D.CATH 08:29
PROVIDERS: ATTEND Internal Medicine Interventional Cardiology
DX: I25.119 Atherosclerotic heart disease of native coronary artery with unspecified angina pectoris (principal)
CPT/HCPCS: 93458; 93571; C9600

== ENCOUNTER 2019-01-27 10:19 | Observation (INO) | payer MEDICARE, OTHER ==
[~2019-01-27] VITALS: Ht 172.7 cm; Wt 94.5 kg
--- NOTE | ~2019-01-27 | HEMODYNAMI ---
PATIENT:SAROJ GUTIERREZ MEDICAL RECORD: [id number] : 50 LOCATION:[facility] D.2121 ADMISSION DATE: 01/27/19 Generatedon:01/28/20197:48 Patient name: SAROJ GUTIERREZ Patient #: [id number] SSN: [id number] : 1950 Date of study: 01/28/2019 Page: Of Hemodynamic Procedure Report Patient Data Patient Demographics Procedure consent was obtained First Name: SAROJ Gender: Male Last Name: MATT : 1950 [facility] Initial: ODILIA Age: 68 year(s) Patient #: [id number] Race: SSN: [id number] Additional ID: [id number] Contact details Address: [address] [place] [address] State: [place] City: [place] Zip code: [address] Past Medical History Allergies: No known allergies Admission Admission Data Admission Date: 01/27/2019 Admission Time: 13:21 Room #: D.2121 Height (in.): 67.72 BSA: 2.08 (m2) Height (cm.): 172 BMI: 32.11 (kg/m2) Weight (lbs.): 209.44 Weight (kg.): 95 Lab Results Lab Result Date: 01/28/2019 Lab Result Time: 0:00 Biochemistry Name Units Result Min Max BUN mg/dl 29 --(----)-* 7 18 Creatinine mg/dl 1 --(--*-)-- 0.6 1.3 eGFR ml/min 79.40646 *-(----)-- 90 120 NONAFRICAN CBC Name Units Result Min Max Hematocrit % 44.9 --(*---)-- 42 54 Hemoglobin g/dl 16 --(--*-)-- 13.5 17.5 Procedure Procedure Types Cath Procedure Diagnostic Procedure LHC LHC w/Coronaries Sedation Charges Moderate Sedation up to 15 minutes Procedure Description Procedure Date Procedure Date: 01/28/2019 Procedure Start Time: 7:22 Procedure End Time: 7:37 Procedure Staff Name Function Kalani Koch RN Nurse Indio Ortega MD Performing Physician Amy Marques RT Monitor Gracia Sprague RT Scrub Procedure Data Cath Procedure Fluoroscopy Diagnostic fluoroscopy Total fluoroscopy Time: 1.8 time: 1.8 min min Diagnostic fluoroscopy Total fluoroscopy dose: 575 dose: 575 mGy mGy Contrast Material Contrast Material Type Amount (ml) Isovue 300 64 Entry Location Entry Primary Successful Side Size Upsize Upsize Entry Closure Succes sful Closure Location (Fr) 1 (Fr) 2 (Fr) Remarks Device Remarks Femoral Right 5 Fr Exoseal artery Estimated blood loss: 5 ml Diagnostic catheters Device Type Used For End Catheter Placement MULTIPACK JL 4.0 5Fr Procedure catheter MULTIPACK 3DRC 5Fr Procedure catheter MULTIPACK Pigtail 5 Fr Procedure catheter Procedure Complications No complications Procedure Medications Medication Administration Route Dosage Oxygen etCO2 Nasal cannula 2 l/min Lidocaine 2% added to field 20 Heparin Flush Bag added to field 2 bags (1000units/500ml NS) 0.9% NaCl I.V. 100 ml/hr Versed I.V. 2 mg Fentanyl I.V. 50 mcg Benadryl I.V. 50 mg Versed I.V. 1 mg Fentanyl I.V. 50 mcg Versed I.V. 1 mg Fentanyl I.V. 50 mcg Hemodynamics Rest BSA: 2.08 (m2) HGB: 16 (g/dl) O2 Consumption: Estimated: 232.8 (ml/min) O2 Consu mption indexed: Estimated:111.92 (ml/min/m) Heart Rate: 59 (bpm) Pressure Samples Time Site Value (mmHg) Purpose Heart Use Rate(bpm) 7:31 LV 124/-4,14 Snapshot 73 7:32 LV 139/2,20 Pullback 79 7:32 AO 135/67(95) Pullback 79 Gradients Valve Time Site 1 Site 2 Mean SEP/DFP Peak To Heart Use (mmHg) (sec/min) Peak Rate (mmHg) (bpm) Aortic 7:32 LV AO 12 20 4 79 139/2,20 135/67(95) Calculations Valve P-P Mean Valve Index Valve Source Name Gradient Area Flow (cm2) Aortic 4 12 4 12 Snapshots Pre Cath Intra NCS Post Cath Vital Signs Time Heart Resp SPO2 etCO2 NIBP (mmHg) Rhythm Pain Sedation Rate (ipm) (%) (mmHg) Status Level (bpm) 7:11:54 64 19 96 29.2 130/64(119) NSR 0 (11) 10(A) , No pain 7:16:18 56 17 93 44.1 132/72(109) NSR 0 (11) 10(A) , No pain 7:20:46 59 17 95 41.9 121/68(93) NSR 0 (11) 10(A) , No pain 7:24:58 61 16 95 47.2 115/70(85) NSR 0 (11) 10(A) , No pain 7:29:16 78 18 93 39.6 128/68(94) NSR 0 (11) 10(A) , No pain 7:33:38 81 14 96 35.2 116/69(96) NSR 0 (11) 10(A) , No pain 7:37:56 68 7 94 40.4 109/67(100) NSR 0 (11) 10(A) , No pain Medications Time Medication Route Dose Verified Delivered Reason Notes Effectiveness by by 7:06:19 Benadryl I.V. 50 mg Indio Buffie used for preop med Jordan Koch RN procedure from the med floor due to iv infiltrated. 7:13:46 Oxygen etCO2 2 Indio Buffie used for Nasal l/min Jordan Kcoh RN procedure cannula 7:13:53 Lidocaine 2% added 20ml Indio Indio for local to vial Jordan Ortega MD anesthetic field 7:13:59 Heparin Flush added 2 Indio Indio used for Bag to bags Jordan Ortega MD procedure (1000units/500ml field NS) 7:14:08 0.9% NaCl I.V. 100 Indio Buffie Per ml/hr Jordan Koch RN physician 7:16:42 Versed I.V. 2 mg Indio Buffie for Jordan Koch RN sedation 7:16:48 Fentanyl I.V. 50 Indio Buffie for mcg Jordan Koch RN sedation 7:20:51 Versed I.V. 1 mg Indio Buffie for Jordan Koch RN sedation 7:20:55 Fentanyl I.V. 50 Indio Buffie for mcg Jordan Koch RN sedation 7:25:46 Versed I.V. 1 mg Indio Buffie for Ortega MD Koch RN sedation 7:25:50 Fentanyl I.V. 50 Indio Uriarte for [facility] Jordan Koch RN sedation Procedure Log Time Note 6:39:08 Signed procedure consent form obtained from patient. 6:39:11 Procedure Status Urgent Heart Cath (IP). 6:39:12 Time tracking: Regular hours (M-F 7:00 - 5:00) 6:39:14 Plan of Care:Hemodynamics will remain stable., Cardiac rhythm will remain stable., Comfort level will be maintained., Respiratory function will remain adequate., Patient/ family verbilizes understanding of procedure., Procedure tolerated without complication., Recovers from procedure without complications.. 6:39:17 Kalani Koch RN sent for patient. Start room use. 6:40:12 Patient allergic to No known allergies 6:41:46 Lab Result : Hemoglobin 16 g/dl 6:41:46 Lab Result : Hematocrit 44.9 % 6:41:46 Lab Result : eGFR NONAFRICAN 79.51191 ml/min 6:41:46 Lab Result : BUN 29 mg/dl 6:41:46 Lab Result : Creatinine 1 mg/dl 6:41:59 Patient Weight : 209.44 lbs 6:42:02 Patient Height : 67.72 inches 6:55:36 Patient received from Med II to CCL 1 Alert and oriented. Tansferred to table in Supine position. 6:55:38 Correct patient and procedure confirmed by team. 6:55:38 Warm blankets applied, and brianna hugger turned on for patient comfort. 6:55:40 Pre-procedure instructions explained to patient. 6:55:41 Pre-op teaching completed and patient verbalized understanding. 6:55:43 Family unavailable. 6:55:44 Patient NPO since Midnight. 6:55:49 Is the patient allergic to Iodine/contrast media? No. 6:55:51 Is patient on blood thinner?Yes 6:55:54 ACC The patient was administered the following blood thiners within the last 24 hours: ACCPlavix 6:56:05 PLAVIX TAKEN YESTERDAY 6:56:07 Patient diabetic? No. 6:56:10 Previous problem with sedation/anesthesia? No ? 6:56:11 Snore? Yes 6:56:12 Sleep apnea? No 6:56:13 Deviated septum? No 6:56:14 Opens mouth fully? Yes 6:56:15 Sticks out tongue? Yes 6:56:17 Airway obstruction? No ? 6:56:23 Dentures? Yes UPPER PLATE 6:56:27 Pre procedure: right dorsailis pedis pulse 1+ Palpable, but thready & weak; easily obliterated 6:56:35 Lab results completed and on chart. 6:59:06 IV started by Kalani Koch RN inright antecubital with a 22 gauge IV catheter with 0.9% NaCl at KVO. 7:06:19 Benadryl 50 mg I.V. was administered by Kalani Koch RN; used for procedure; preop med from the med floor due to iv infiltrated. 7:10:30 ECG and BP/O2 sat monitors applied to patient. 7:10:33 Vital chart was started 7:10:34 Baseline sample Acquired. 7:10:37 Rhythm: sinus bradycardia 7:10:44 Full Disclosure recording started 7:13:46 Oxygen 2 l/min etCO2 Nasal cannula was administered by Kalani Koch RN; used for procedure; 7:13:53 Lidocaine 2% 20ml vial added to field was administered by Indio Ortega MD; for local anesthetic; 7:13:59 Heparin Flush Bag (1000units/500ml NS) 2 bags added to field was administered by Indio Ortega MD; used for procedure; 7:14:08 0.9% NaCl 100 ml/hr I.V. was administered by Kalani Koch RN; Per physician; 7:14:31 Use device set Femoral Dx 7:14:32 ACIST Syringe (23296) opened to sterile field. 7:14:33 Bag Decanter () opened to sterile field. 7:14:34 ACIST Manifold (22460) opened to sterile field. 7:14:34 ACIST Hand Control (91212) opened to sterile field. 7:14:35 Tegaderm 4 x 4 (1626W) opened to sterile field. 7:14:36 Medline Cath Pack ([id number]) opened to sterile field. 7:14:37 DIAGNOSTIC Multipack 5Fr catheter set (CG7392) opened to sterile field. 7:14:38 SHEATH 5FR Winchester (NFK138) opened to sterile field. 7:14:39 EMERALD Guide Wire (676-676) opened to sterile field. 7:14:51 Right groin area was prepped with chlora-prep and draped in sterile fashion 7:15:15 RADIAL PULSE TOO FAINT. 7:15:18 Alarms reviewed by R. N. 7:15:20 Sharps counted by scrub and verified by R.N. 7:15:31 --------ALL STOP TIME OUT------ 7:15:32 Final Timeout: patient, procedure, and site verified with staff and physician. All members of the team are in agreement. 7:15:33 Right groin site verified by team. 7:15:36 Fire Safety Assessment: A--An alcohol-based skin anteseptic being used preoperatively., C--Open oxygen or nitrous oxide is being used., D--An ESU, laser, or fiber-optic light is being used. 7:15:38 Physical assessment completed. ASA score P 2 - A patient with mild systemic disease as per Indio Ortega MD. 7:15:42 2) 60-89 Mildly reduced kidney function, and other findings (as for stage 1) point to kidney disease. 7:15:48 Maximum allowable contrast dose (3.7 X eGFR X 0.75)219 ml. 7:15:51 Sedation plan: IV Moderate Sedation Medication:Versed, Fentanyl 7:16:04 Zero performed for pressure channel P1 7:16:42 Versed 2 mg I.V. was administered by Kalani Koch RN; for sedation; 7:16:48 Fentanyl 50 mcg I.V. was administered by Kalani Koch RN; for sedation; 7:20:51 Versed 1 mg I.V. was administered by Kalani Koch RN; for sedation; 7:20:55 Fentanyl 50 mcg I.V. was administered by Kalani Koch RN; for sedation; 7:22:19 Zero performed for pressure channel P1 7:22:23 Zero performed for pressure channel P1 7:22:27 Zero performed for pressure channel P1 7:22:33 Procedure started. 7:22:47 Local anesthetic to right femoral artery with Lidocaine 2% by Indio Ortega MD.INITIAL ACCESS ONLY 7:25:03 A 5 Fr sheath was inserted into the Right Femoral artery 7:25:38 A MULTIPACK JL 4.0 5Fr catheter was advanced over the wire and used for Procedure. 7::46 Versed 1 mg I.V. was administered by Kalani Koch RN; for sedation; 7::50 Fentanyl 50 mcg I.V. was administered by Kalani Koch RN; for sedation; 7:28:02 LCA angiography performed. 7:28:05 Catheter exchanged over wire. 7:29:39 A MULTIPACK 3DRC 5Fr catheter was advanced over the wire and used for Procedure. 7:29:47 RCA angiography performed. 7:30:10 Catheter exchanged over wire. 7:30:34 A MULTIPACK Pigtail 5 Fr catheter was advanced over the wire and used for Procedure. 7:31:26 LV gram done using MAO 7:31:35 Injector settings: Ml/sec: 10, Volume: 20, 7:31:56 LV hemodynamics recorded. 7:32:10 EF : 50 % 7:32:27 Catheter removed. 7:34:22 EXOSEAL 5Fr (EX500) opened to sterile field. 7:35:42 Sheath removed intact; hemostasis achieved with Exoseal to the Right Femoral artery. 7:35:47 Procedure ended.(Physican Out) 7:36:11 Fluoroscopy time 01.80 minutes. 7:36:15 Fluoroscopy dose: 575 mGy 7:36:15 Flurop Dose total: 575 7:36:25 Dose Area Product 74922 mGy/cm. 7:36:30 Contrast amount:Isovue 300 64ml. 7:36:33 Maximum allowable dose exceeded? No. 7:36:34 Sharps counted by scrub and verified by R.N. 7:36:36 Post-op/insertion site Right Femoral artery dressed using a 4 x 4 and Tegaderm. 7:36:38 Post-procedure physical assessment completed. ASA score P 2 - A patient with mild systemic disease as per Indio Ortega MD. 7:36:41 Post procedure rhythm: sinus rhythm 7:36:45 Estimated blood loss: 5 ml 7:36:46 Patient needs reinforcement of post procedure teaching. 7:36:46 Post procedure instruction explained to patient.Patient verbalizes understanding. 7:37:17 Procedure type changed to Cath procedure, Diagnostic procedure, LHC, LHC w/Coronaries, Sedation Charges, Moderate Sedation up to 15 minutes 7:37:31 Procedure and supply charges have been captured, reviewed, submitted and are correct. 7:37:33 Procedure Complication : No complications 7:37:35 Vital chart was stopped 7:37:36 See physician's report for complete and final results. 7:37:40 Report given to [facility]. 7:37:42 Patient transfered to [facility] with Bed. 7:37:44 Full Disclosure recording stopped 7:37:44 Procedure ended. 7:37:49 End room use (Document Last) Device Usage Item Name Manufacture Quantity Catalog Hospital Part Current Minimal L ot# / Number Charge Number Stock Stock Serial# Code ACIST Acist 1 16521 305650 923974 [id number] 20 Syringe Medical (19769) Systems Inc Bag Microtek 1 2001S 151980 60490 919086 5 Decanter Medical Inc. () ACIST Hand Acist 1 12585 924357 580329 726709 5 Control Medical (13605) Systems Inc ACIST Acist 1 49173 721792 806200 267787 5 Manifold Medical (54030) Systems Inc Tegaderm 4 3M 1 1626W 291195 415114 411516 5 x 4 (1626W) Medline Medline 1 [id number] 649639 43608 255638 5 Cath Pack ([id number]) DIAGNOSTIC Cardinal 1 RO7130 344832 75445 036557 30 Multipack Health 5Fr catheter set (IS8730) SHEATH 5FR Terumo 1 XZX149 716804 386197 036839 5 [place] (YNO637) EMERALD Cardinal 1 502-455 328051 131855 222316 5 Guide Wire Health (502-455) MULTIPACK Cardinal 1 624513 5 JL 4.0 5Fr Health catheter MULTIPACK Cardinal 1 [id number] 5 3DRC 5Fr Health catheter MULTIPACK Cardinal 1 265114 5 Pigtail 5 Health Fr catheter EXOSEAL 5Fr Cardinal 1 EX500 287936 464104 097387 10 (EX500) Health Signature Audit [place] Stage Time Signature Unsigned Intra-Procedure 01/28/2019 Amy Marques 7:40:27 AM RT(R) RT(R) 01/28/2019 7:43:49 AM Intra-Procedure 01/28/2019 Kalani Koch RN 7:45:02 AM Intra-Procedure 01/28/2019 Indio Orteag MD 7:48:13 AM [facility] [address] [place] [address]
[~2019-01-27 10:19] MED LIST changes: +OMEPRAZOLE20 M1 PO
[2019-01-27 10:48] LABS: HEMATOCRIT 44.9 % (42.0-54.0); LYMPHOCYTES 28.1 % (15-50); MCH 32.7 pg (26.0-34.0); MCHC 35.6 g/dL (31.0-37.0); MCV 91.6 fL (80.0-100.0); MEAN PLATELET VOLUME 10.1 fL (7.4-10.4); NEUTROPHILS 66.6 % (40-80); PLATELET COUNT 142 10x3/uL (130-400); RDW 13.2 % (11.5-14.5); WBC 7.4 10x3/uL (4.8-10.8)
[2019-01-27 11:03] LABS: ALKALINE PHOSPHATASE 53 U/L (46-116); ALT (SGPT) 28 U/L (10-68); BILIRUBIN - TOTAL 0.33 mg/dL (0.2-1.3); CALC OSMOLALITY 287 mosm/kg (275-300); CALCIUM 9.6 mg/dL (8.5-10.1); CARBON DIOXIDE 31.4 mmol/L (21.0-32.0); CHLORIDE - SERUM 102 mmol/L (98-107); GLUCOSE 108 mg/dL (74-106); POTASSIUM - SERUM 3.7 mmol/L (3.5-5.1); PROTEIN - SERUM 7.3 g/dL (6.4-8.2); SODIUM 141 mmol/L (136-145); UREA NITROGEN 29 mg/dL (7-18); eGFR NON AFRICAN AMERICAN 79 mL/min (90-120)
[2019-01-27 11:12] LABS: CKMB 2.5 U/L (0.0-3.6); CREATINE KINASE 163 UL (21-232); MAGNESIUM - SERUM 1.7 mg/dL (1.8-2.4); TROPONIN-I < 0.017 ng/mL (0.000-0.060)
[2019-01-27 11:18] LABS: APTT 25.3 SECONDS (22.8-39.4); INR 1.08 (0.85-1.17); PROTIME 13.5 SECONDS (11.6-15.0)
[2019-01-27 12:00] VITALS: BP 112/59; BP 118/62
[2019-01-27 13:00] VITALS: BP 117/61
[2019-01-27 14:00] VITALS: BP 126/59
--- NOTE | 2019-01-27 14:57 | NUR ---
TRANSFER FROM ER BY W/C. BISHOPINTED TO ROOM. CALL LIGHT IN REACH. WILL CONT. PLAN OF CARE.
--- NOTE | 2019-01-27 15:01 | NUR ---
RECIVED FROM ER PER WC TO ROOM 2121. ADMIT ASSESSMENT PER RN.
[2019-01-27] MEDS ORDERED: MULTI-DAY VITAM1 TAB PO (15:05)
[2019-01-27 15:10] VITALS: BP 138/64; BMI 31.6
[2019-01-27 15:46] VITALS: Ht 172.7 cm; Wt 94.5 kg
[2019-01-27 16:00] VITALS: BP 132/64
--- NOTE | 2019-01-27 17:30 | NUR ---
WITHOUT CHANGES OR DISTRESS NOTED AT THIS TIME. DENIES NEEDS
--- NOTE | 2019-01-27 19:18 | NUR ---
BEDSIDE REPORT RECEIVED FROM DAY SHIFT, PT CARE ASSUMED. INTRODUCED SELF AND WROTE NAME ON BOARD. PT LYING IN BED, AAOX4. DENIES ANY NEEDS AT THIS TIME. BED IN LOWEST POSITION, SR X2, CALL LIGHT WITHIN REACH. WILL CONTINUE TO MONITOR.
[2019-01-27 20:47] VITALS: BP 116/64
[2019-01-28] VITALS: BP 109/60
[2019-01-28 04:00] VITALS: BP 100/57
--- NOTE | 2019-01-28 06:50 | NUR ---
ASSESSMENT DONE. DENIES NEEDS
--- NOTE | 2019-01-28 06:52 | NUR ---
TO OPHTHALMIC MEDICAL TECHNOLOGIST PER BED
--- NOTE | 2019-01-28 07:58 | NUR ---
RETURN FROM [employer]K [employer]ANT AGENT PER BED. RT KRISTINA MORTON C/D/I. PULSE PALP.
[2019-01-28 08:47] LABS: PLT FUNCT.(P2Y12) PLAVIX 138 PRU (194-418)
--- NOTE | 2019-01-28 09:07 | NUR ---
I have reviewed this patient and I concur with the Shift Assessment completed by the Licensed Practical Nurse today this shift.
--- NOTE | 2019-01-28 09:15 | MORECARE ---
CASE MANAGEMENT DISCHARGE SUMMARY PATIENT: BERNABE GUTIERREZ UNIT: [id number] ADM DATE: 01/27/19 AGE: 68 : 50 SEX: M ROOM/BED: D.2127 AUTHOR: NADIA VALENTIN PHYSICIAN: REFERRING PHYSICIAN: SHRADDHA ROBERTS M.D. DATE OF SERVICE: 01/28/19 Discharge Plan Patient Name: BERNABE GUTIERREZ Facility: [facility]:[place] : 1950 Planned Disposition: Home Anticipated Discharge Date: 01/28/19 Discharge Date: Expected LOS: 1 Initial Reviewer: [email or web address] Initial Review Date: 01/28/2019 Generated: 01/28/19 10:15 am DCP- Discharge Planning Updated by [email or web address]: Gracie Arroyo on 01/27/19 1:[address] CM met with patient for DC planning needs. CM explained the purpose of interview, patient gives permission for same. Patient states he lives with his , Pam Steiner, #[phone]. Patient gives permission to speak with his , Ale. Patient states he is independent with his care. PCP: Dr. Valverde @[facility]. Pharmacy: [facility]. DME: jie. Emergency contact: Pam Steiner () #[phone]. Community Resources: None. States he does not require additional services at this time. He feels safe discharging to his home. Denies being admitted to a hospital within past 30 days. Transportation at discharge will be spouse, Pam @[phone]. CM will follow and assist with DC needs PRN. Coverage Notice Reviewer: [email or web address] Radha Arroyo Notice Issued Date-Time: 01/27/2019 14:26 Notice Type: Medicare Outpatient Observation Notice Notice Delivered To: Patient Relationship to Patient: Self Octave Board Assembler Name: Bernabe Gutierrez Delivery Method: HAND - Hand Delivered Natasha Days: Prior Verbal Notification: Recipient Understood Notice: Recipient Signature: Med Rec Note Co-signed by Attending: Coverage Notice Comment: Reviewer: [email or web address] - Bernice Heck Notice Issued Date-Time: 01/28/2019 8:04 Notice Type: Medicare Outpatient Observation Notice Notice Delivered To: Patient Relationship to Patient: Self Octave Board Assembler Name: Delivery Method: HAND - Hand Delivered Natasha Days: Prior Verbal Notification: Recipient Understood Notice: Yes Recipient Signature: Yes Med Rec Note Co-signed by Attending: Coverage Notice Comment: Patient Name: BERNABE GUTIERREZ Page [phone] at 0915 All edits/amendments must be made on the electronic document DICTATION DATE: 01/28/19914 IMMUNOCHEMIST: GREY 01/28/19914 RPT#: [id number] DC DATE: STATUS: ADM IN [facility] [address] [place] [address] END OF REPORT
--- NOTE | 2019-01-28 10:48 | NUR ---
DC GIVEN TO PT
--- NOTE | 2019-01-28 10:57 | NUR ---
DC HOME PER PERSONAL CAR
== END 2019-01-28 10:57 | disposition home or self-care (01) ==
LOC: D.ER 10:19 → D.M2 13:21 → OBSVTIME 13:22 → D.M2 01-28 09:40 → D.SDCHOLD 01-28 09:40 → D.M2 01-28 10:57
PROVIDERS: Emergency Medicine; ADMIT Internal Medicine Cardiovascular Disease; ATTEND Internal Medicine Cardiovascular Disease
DX: I25.110 Atherosclerotic heart disease of native coronary artery with unstable angina pectoris (principal); I10 Essential (primary) hypertension; E78.5 Hyperlipidemia, unspecified